=== PATIENT | male | born 1970 | race Caucasian/White ===

== ENCOUNTER → 2017-01-29 | Outpatient (CLI) | payer BC ==
--- NOTE | 2017-01-29 10:33 | XR ---
EXAMINATION TYPE: XR Hip Complete RT DATE OF EXAM: 01/29/2017 10:28 AM COMPARISON: NONE HISTORY: Pain TECHNIQUE: 2 views submitted FINDINGS: There is no evidence of erosive change or acute fracture. Severe narrowing of the superior margin of the joint space with hypertrophic change of the acetabulum . Chronic deformity involving the femoral neck and head with a small spur. IMPRESSION: 1. Severe arthropathy correlate for osteoarthritis.
== END | disposition home or self-care (01) ==
LOC: RADXRMAIN 10:16
PROVIDERS: ATTEND Family Medicine
DX: M12.851 Other specific arthropathies, not elsewhere classified, right hip (principal)
CPT/HCPCS: 73502

== ENCOUNTER 2018-05-25 17:05 | Inpatient (IN) | payer BC ==
[2018-05-22 15:40] VITALS: BMI 35.9
[2018-06-02] MEDS ORDERED: ACETAMINOPHEN TAB 500 MG TAB PO ONE (05:00)
[2018-06-02] MEDS ORDERED: TRANEXAMIC ACID 1,000 MG in SODIUM CHLORIDE 0.9% 50 ML IVPB ONE ×4 (05:00)
[2018-06-02] MEDS ORDERED: ROPIVACAINE 246.25 MG, EPINEPHrine 0.5 MG, KETOROLAC 30 MG, cloNIDine HCL/PF 80 MCG, WA... MISCELLANE ONE ×5 (06:26)
[2018-06-02] MEDS: MELOXICAM 7.5 MG TAB PO ONE ×2 (08:29→16:44)
[2018-06-02] MEDS ORDERED: LACTATED RINGERS 1,000 ML IV ONE ×3 (08:30→10:33)
[2018-06-02] MEDS ORDERED: ONDANSETRON 4 MG/2 ML VIAL IVP ONE (08:42)
[2018-06-02] MEDS ORDERED: DEXAMETHASONE SOD PHOSPHATE 10 MG/ML 1 ML VIAL IV ONE (08:43)
[2018-06-02] MEDS ORDERED: hydrOXYzine PAMOATE 25 MG CAP PO PRN (08:50)
[2018-06-02] MEDS ORDERED: ONDANSETRON 4 MG/2 ML VIAL IVP PRN (08:50)
[2018-06-02] MEDS ORDERED: HYDROmorphone 1 MG/ML 1 ML SYRINGE IVP PRN ×3 (08:50)
[2018-06-02] MEDS ORDERED: DIAZEPAM 5 MG TAB PO PRN ×2 (08:50)
[2018-06-02] MEDS ORDERED: MAGNESIUM HYDROXIDE 2,400 MG/10 ML CUP PO PRN (08:50)
[2018-06-02] MEDS ORDERED: HYDROcodone/APAP 5-325MG 1 EACH TAB PO PRN (08:50)
[2018-06-02] MEDS ORDERED: NALOXONE 0.4 MG/ML 1 ML VIAL IV PRN (08:50)
[2018-06-02] MEDS ORDERED: SODIUM CHLORIDE 0.9% 100 ML BAG ONE (09:20)
[2018-06-02] MEDS ORDERED: HEPARIN SODIUM,PORCINE 10,000 UNIT/ML 1 ML VIAL ONE (09:20)
[2018-06-02] MEDS ORDERED: diphenhydrAMINE 50 MG/ML 1 ML VIAL ONE (09:20)
[2018-06-02] MEDS ORDERED: fentaNYL (PF) 50 MCG/ML 2 ML AMP ONE (09:20)
[2018-06-02] MEDS ORDERED: TRANEXAMIC ACID 1,000 MG/10 ML VIAL ONE (09:20)
[2018-06-02] MEDS ORDERED: DEXTROSE 50%-WATER 50 ML VIAL IV ONE (09:20)
[2018-06-02] MEDS ORDERED: PROPOFOL 10 MG/ML 20 ML VIAL IV ONE (09:20)
[2018-06-02] MEDS ORDERED: MIDAZOLAM 2 MG/2 ML VIAL ONE (09:20)
[2018-06-02] MEDS ORDERED: SODIUM CHLORIDE 0.9% IRRIG 1,000 ML BTL IRRIGATION ONE (09:20)
[2018-06-02] MEDS ORDERED: BUPIVACAINE (PF) 0.75% 10 ML VIAL ONE (09:20)
[2018-06-02] MEDS ORDERED: ceFAZolin 3,000 MG in SODIUM CHLORIDE 0.9% IRRIGATIO 3,000 ML IRRIGATION ONE (09:49)
--- NOTE | 2018-06-02 10:53 | P.OP ---
Date of Procedure: 06/02/18 Preoperative Diagnosis: Severe osteoarthritis right hip Postoperative Diagnosis: Severe osteoarthritis right hip Procedure(s) Performed: Right total hip arthroplasty with a direct anterior approach Implants: Rivera and nephew Polarstem size 5 standard Rivera & Nephew R3, 3 hole acetabular shell, 56 mm Rivera [employer] Nephew reflection 6.5 mm cancellus screw, 20 mm 2 Rivera [employer] Nephew R3, XLPE 20 acetabular liner Rivera & Nephew Oxinium femoral head 36 m, +0 All components were press-fit. The articulation is Oxinium on polyethylene. Anesthesia: spinal Surgeon: Curtis Johnson Cartographic Aide #1: Teresa Mcfarland Estimated Blood Loss (ml): 250 (120 mL returned with Cell Saver) Pathology: other (Femoral head) Condition: stable Disposition: PACU Indications for Procedure: After failure of conservative treatment we discussed the surgical and nonsurgical treatment options at length. Patient wishes to proceed with a total hip arthroplasty with a direct anterior approach. Complications specific to this procedure were discussed at length, including but not limited to infection, leg length discrepancy, dislocation, and nerve injury. Patient is aware of all these complications and informed consent was obtained Operative Findings: The operative findings are consistent with severe osteoarthritis of the right hip Description of Procedure: Patient was seen and evaluated in the preoperative area, consent was reviewed, and the surgical site was marked with a skin marker. Patient was then brought to the operating room and given prophylactic antibiotics intravenously. 1 g of Tranexamic acid was also given. A spinal anesthetic was administered by the anesthesia department. The patient was then placed on the [place] table with the bony prominences well-padded. The hip area was then prepped and draped in usual sterile fashion. A universal timeout was then performed, which confirmed the patient's name, surgical site, ALLERGIES, and procedure being performed. Next the incision site was located at 1 cm distal and 1 cm lateral to the anterior superior iliac spine. The skin and subcutaneous tissues were sharply incised. Incision was carefully dissected down to the fascia overlying the tensor fascia mainor muscle. This fascia was then incised in line with the incision. Next, using blunt finger dissection, the tensor fascia mainor muscle was dissected off its investing fascia. The muscle was then carefully retracted laterally with a cobra retractor over the lateral neck of the femur. Next, the circumflex vessels were identified and cauterized using the AquaMantis device. The anterior hip capsule was then exposed. The capsule was then opened and an inverted T fashion. Cobra retractors were then placed intracapsularly. The proximal femur was then visualized. The femoral neck was then osteotomized appropriate level above the lesser trochanter. Small amount of traction was placed with the [place] table. A small wedge of bone was then removed from the remaining femoral head. Next, using a corkscrew femoral head was easily removed from the acetabulum. On gross visual inspection, the femoral head had complete loss of articular cartilage in multiple periarticular osteophytes. Attention was then turned to the acetabulum. the acetabulum was exposed and any remaining labrum was excised. Sequential reaming of the acetabulum was performed using fluoroscopic guidance. When the appropriate size was reached, a trial was then placed. The position and fit of the trial was checked with fluoroscopy. The trial was then removed. Then, using fluoroscopic guidance, the final implant was impacted at 20 of anteversion and 40 of abduction, and fully seated in the acetabulum. 2 screws were then placed in the acetabulum. Again fluoroscopy was used to check position of the screws. Next, the liner was then impacted, with a 20 elevated liner located in the anterior superior quadrant. Component locking was confirmed. Attention was then directed to the femur. With the aid of the [place] table, the femur was externally rotated to approximately 130, extended, and abducted under the opposite leg. A side hook was then placed under the proximal femur, and the side hook elevator was used to elevate the proximal femur. Retractors were then placed. A capsular release was performed, as well as a release of the conjoined tendon, which afforded excellent visualization of the proximal femur. Next, a box osteotome was used to lateralize the proximal femur. A handle bender was then used to locate the femoral canal. Sequential broaching was then performed with appropriate size which afforded excellent fixation in the proximal femur. A trial was then placed with appropriate head and neck, and the hip was gently reduced with the aid of the [place] table. Fluoroscopy was then used to check position of the components, as well as to ensure equal leg lengths. The hip was then gently dislocated and the trials were then removed. Final implants were then impacted and the hip was again reduced. Final fluoroscopic x-rays confirmed that the components were in anatomic position, as well as equal leg lengths. The hip was also taken through range of motion, and found to be stable. The hip was then copiously irrigated with antibiotic solution with pulsatile lavage. The hip was then irrigated with Irrisept solution. The soft tissues were then injected with a ropivacaine solution, which consisted of 246.25 mg of ropivacaine, 0.5 mg of epinephrine, 30 mg of Toradol, 80 g of clonidine, and 48.45 mL of sterile water, for a total of 100 mL of fluid injected. A second dose of 1 g of Tranexamic acid was also given. the fascia was then closed with 2-0 strata fix suture. The subcutaneous tissue was closed with 3-0 Vicryl. The subcuticular tissue was closed with 3-0 strata fix suture. The skin was then closed with Dermabond glue and a sterile silver dressing. The patient was then transferred to the recovery room in stable condition. The public health assistant SONG Salgado was required due to the complexity of surgery, and the need for skilled certified surgical technician for positioning, draping, exposure, retraction, and closure of the wound.
[2018-06-02] MEDS ORDERED: MEPERIDINE 50 MG/ML SYRINGE IVP ONE ×2 (11:10→11:20)
[2018-06-02] MEDS ORDERED: HYDROmorphone 1 MG/ML 1 ML SYRINGE IVP ONE ×4 (11:38→12:32)
--- NOTE | 2018-06-02 11:49 | XR ---
Right hip HISTORY: Status post right hip arthroplasty Single frontal view of the right hip Patient is status post right hip arthroplasty. There is anatomic alignment. Lucency in the soft tissu es compatible with postop state. IMPRESSION: Orthopedic follow-up
--- NOTE | 2018-06-02 12:52 | FL ---
Fluoroscopy HISTORY: Anterior hip replacement 1 minute 2 seconds fluoroscopy time supplied to the referring clinician. 2 intraoperative C-arm imag es document the procedure. See dictated report from orthopedic surgery.
--- NOTE | 2018-06-02 12:53 | XR ---
Limited right hip HISTORY: Anterior hip replacement 2 intraoperative C-arm images document the procedure.
[2018-06-02] MEDS: HYDROcodone/APAP 5-325MG 1 EACH TAB PO PRN ×2 (14:46→21:28)
[2018-06-02] MEDS ORDERED: ceFAZolin 3 GM in SODIUM CHLORIDE 0.9% 100 ML IVPB SCH (16:00)
[2018-06-02] MEDS: MELOXICAM 7.5 MG TAB PO SCH (16:38)
[2018-06-02] MEDS: ASPIRIN 325 MG TAB PO SCH ×2 (16:38→21:27)
[2018-06-02] MEDS: SODIUM CHLORIDE 0.9% 1,000 ML IV SCH (16:39)
[2018-06-02] MEDS ORDERED: SENNOSIDES-DOCUSATE SODIUM 1 EACH TAB PO SCH (21:00)
[2018-06-03] MEDS: HYDROcodone/APAP 5-325MG 1 EACH TAB PO PRN (07:08)
[2018-06-03 07:11] VITALS: BP 144/85; PULSE 75; RESP 12; TEMP 97.9
[2018-06-03 07:36] LABS: Basophils % (A) 0 %; Eosinophils % (A) 0 %; HCT 33.4 % (39.0-53.0); Lymphocytes # (A) 1.8 k/uL (1.0-4.8); Lymphocytes % (A) 17 %; MCH 30.6 pg (25.0-35.0); MCHC 34.2 g/dL (31.0-37.0); MCV 89.4 fL (80.0-100.0); Mean Platelet Volume 6.5; Monocytes # (A) 0.7 k/uL (0-1.0); Monocytes % (A) 7 %; Neutrophils # (A) 8.1 k/uL (1.3-7.7); Neutrophils % (A) 75 %; Platelet Count 245 k/uL (150-450); RBC 3.73 m/uL (4.30-5.90); RDW 12.2 % (11.5-15.5); WBC 10.8 k/uL (3.8-10.6)
--- NOTE | 2018-06-03 07:37 | CONS ---
CONSULTATION SUBJECTIVE: 47-year-old white male status post right hip replacement. The patient has minimal pain at this time, having no chest pain, shortness of breath has a history hypertension. HOME MEDICATIONS: Please see list. REVIEW OF SYSTEMS: Fourteen point review of systems negative except for mentioned in HPI. PHYSICAL EXAM: VITAL SIGNS: Stable, afebrile. CARDIOVASCULAR: S1, S2. LUNGS: Clear. GI soft. HEMATOLOGY: Negative Homans. PSYCH: Fair mood and affect. ASSESSMENT: 1. Osteoarthritis right hip. 2. Hypertension. Continue on current home medications. Follow up PT, OT at home, probably discharge home soon. MMODL / IJN: [id number] /
[2018-06-03] MEDS: SODIUM CHLORIDE 0.9% 1,000 ML IV SCH ×2 (07:40→08:23)
[2018-06-03 07:47] LABS: HGB 11.4 gm/dL (13.0-17.5)
[2018-06-03] MEDS: ASPIRIN 325 MG TAB PO SCH (09:44)
[2018-06-03] MEDS: MELOXICAM 7.5 MG TAB PO SCH (09:44)
[2018-06-03] MEDS ORDERED: HYDROcodone/APAP 7.5-325MG 1 EACH TAB PO PRN ×2 (10:09)
--- NOTE | 2018-06-03 10:16 | P.DS ---
Providers Date of admission: 06/02/18 07:47 Expected date of discharge: 06/03/18 Attending physician: Curtis Johnson Consults: 06/02/18 08:50 Consult Physician Routine Consulting Provider: Graham Jacobsen Reason/Comments: medical management Do you want consulting provider notified?: Yes Primary care physician: Graham Jacobsen - Discharge Diagnosis(es) (1) Primary osteoarthritis of right hip Current Visit: Yes Status: Acute (2) S/P total hip arthroplasty Current Visit: Yes Status: Acute Hospital Course: This is a 47-year-old male with known history of degenerative arthritis of the right hip. The patient presents for evaluation. After discussion and consideration patient elects to proceed with total hip arthroplasty. The patient is seen preoperatively by Dr. Johnson and medically cleared for surgery by their primary care physician. Patient is admitted to [facility] on 06/02/2018 for total hip arthroplasty. The procedures performed without complication or sequelae. The patient is doing well postoperatively. Labs and vital signs are stable on day of discharge. On day of discharge patient's hip incision is healing well. There is minimal erythema. There is no drainage noted at this time. There is minimal soft tissue swelling to the hip and thigh. Patient has full foot and ankle motion without difficulty or pain. Neurovascular status to the right lower extremity is intact. Patient is discharged home in good condition. Please see med rec for accurate list of home medications. Plan - Discharge Summary Discharge Rx Participant: Yes New Discharge Prescriptions: New Aspirin 325 mg PO BID #60 tab HYDROcodone/APAP 7.5-325MG [[place] 7.5-325] 1 - 2 tab PO Q4-6H PRN #84 tab PRN Reason: Pain Sennosides [Senokot] 1 tab PO BID #60 tablet No Action Multivitamins, Thera [Multivitamin (formulary)] 1 tab PO DAILY amLODIPine [Norvasc] 5 mg PO DAILY Hydrocodone/Acetaminophen [Hydrocodon-Acetaminoph 7.5-325] 1 tab PO TID PRN PRN Reason: Pain Ibuprofen 800 mg PO Q8H PRN PRN Reason: Pain Discharge Medication List Hydrocodone/Acetaminophen [Hydrocodon-Acetaminoph 7.5-325] 1 tab PO TID PRN [History] Ibuprofen 800 mg PO Q8H PRN 05/22/18 [History] Multivitamins, Thera [Multivitamin (formulary)] 1 tab PO DAILY 05/22/18 [History ] amLODIPine [Norvasc] 5 mg PO DAILY 05/22/18 [History] Aspirin 325 mg PO BID #60 tab 06/03/18 [Rx] HYDROcodone/APAP 7.5-325MG [[place] 7.5-325] 1 - 2 tab PO Q4-6H PRN #84 tab [Rx] Sennosides [Senokot] 1 tab PO BID #60 tablet 06/03/18 [Rx] Follow up Appointment(s)/Referral(s): Curtis Johnson DO [Doctor of Osteopathic Medicine] - 06/18/18 1:30 pm Activity/Diet/Wound Care/Special Instructions: Weightbearing as tolerated with walker Leave dressing intact. Dressing may be removed by home care nurse in 10 days. May shower with dressing on. Follow-up with [facility] in 2 weeks, please call with any questions or concerns [phone] Discharge Disposition: HOME WITH HOME HEALTH SERVICES
== END 2018-06-03 16:03 | disposition home health service (06) | DRG 470 ==
LOC: 2ORMAIN 06-02 07:47 → 3SUR 06-02 14:05
PROVIDERS: ADMIT Orthopaedic Surgery; ATTEND Orthopaedic Surgery
PROC: 30233N0 Transfusion of Autologous Red Blood Cells into Peripheral Vein, Percutaneous Approach (ICD-10-PCS; 2018-06-02)
PROC: 0SR906A Replacement of Right Hip Joint with Oxidized Zirconium on Polyethylene Synthetic Substitute, Uncemented, Open Approach (ICD-10-PCS; principal; 2018-06-02 09:20)
DX: M16.11 Unilateral primary osteoarthritis, right hip (principal); I10 Essential (primary) hypertension; K42.9 Umbilical hernia without obstruction or gangrene; E03.9 Hypothyroidism, unspecified; Z79.899 Other long term (current) drug therapy
CPT/HCPCS: 73501; 85025; 86850; 86891; 86900; 86901; 88300

== ENCOUNTER → 2018-05-26 | Outpatient (CLI) | payer BC ==
[2018-05-26 15:01] LABS: HCT 44.5 % (39.0-53.0); HGB 14.9 gm/dL (13.0-17.5); MCH 30.2 pg (25.0-35.0); MCHC 33.5 g/dL (31.0-37.0); Mean Platelet Volume 6.2; Platelet Count 351 k/uL (150-450); RBC 4.94 m/uL (4.30-5.90); RDW 12.4 % (11.5-15.5); WBC 7.2 k/uL (3.8-10.6)
[2018-05-26 15:05] LABS: Appearance,Urine Clear (Clear); Bilirubin,Urine Negative (Negative); Blood,Urine Negative (Negative); Color,Urine Yellow; Glucose,Urine (UA) Negative (Negative); Ketones,Urine Negative (Negative); Leukocyte Esterase,Urine Negative (Negative); Nitrite,Urine Negative (Negative); PH, Urine 5.5 (5.0-8.0); Protein,Urine Negative (Negative); Specific Gravity,Urine 1.014 (1.001-1.035); Urobilinogen,Urine <2.0 mg/dL (<2.0)
[2018-05-26 15:11] LABS: ALT 40 U/L (21-72); AST 22 U/L (17-59); Albumin 4.8 g/dL (3.5-5.0); Alkaline Phosphatase 67 U/L (38-126); Anion Gap 11 mmol/L; Blood Urea Nitrogen 15 mg/dL (9-20); Calcium 9.9 mg/dL (8.4-10.2); Carbon Dioxide 26 mmol/L (22-30); Chloride 102 mmol/L (98-107); Glucose 95 mg/dL (74-99); Potassium 5.1 mmol/L (3.5-5.1); Sodium 139 mmol/L (137-145); Total Bilirubin 0.3 mg/dL (0.2-1.3); Total Protein 7.7 g/dL (6.3-8.2)
[2018-05-26 15:21] LABS: INR 0.9 (<1.2); Prothrombin Time 9.4 sec (9.0-12.0)
== END | disposition home or self-care (01) ==
LOC: LABPAT 13:54
PROVIDERS: ATTEND Orthopaedic Surgery
DX: Z01.812 Encounter for preprocedural laboratory examination (principal)
CPT/HCPCS: 80053; 81003; 85027; 85610; 85730; 87070

== ENCOUNTER → 2019-07-20 | Outpatient (CLI) | payer BC ==
--- NOTE | 2019-07-20 08:53 | XR ---
EXAMINATION TYPE: XR shoulder complete RT DATE OF EXAM: 07/20/2019 COMPARISON: NONE HISTORY: Pain TECHNIQUE: Three views are submitted. FINDINGS: The osseous structures are intact. There is no acute fracture or dislocation. There is arthropathy o f the AC joint hypertrophic spurring. Apical pleural thickening. IMPRESSION: 1. AC joint arthropathy correlate for rotator cuff disease.
== END | disposition home or self-care (01) ==
LOC: RADXRMAIN 08:34
PROVIDERS: ATTEND Family Medicine
DX: M25.511 Pain in right shoulder (principal)

== ENCOUNTER → 2021-06-22 | Outpatient (CLI) | payer BC ==
--- NOTE | 2021-06-22 13:17 | US ---
EXAMINATION TYPE: US kidneys/renal and bladder DATE OF EXAM: 06/22/2021 COMPARISON: NONE CLINICAL HISTORY: N20.2 Renal Stones. UTI, history of kidney stones EXAM MEASUREMENTS: Right Kidney: 11.4 x 5.9 x 6.2 cm Left Kidney: 11.7 x 5.7 x 5.5 cm Right Kidney: No hydronephrosis or masses seen Left Kidney: No hydronephrosis or masses seen Bladder: wnl Bilateral Jets seen: yes There is no evidence for hydronephrosis at this point in time. No nephrolithiasis is seen. No jose s are identified. The urinary bladder is anechoic. Bilateral ureteral jets are seen. IMPRESSION: Normal renal ultrasound
== END | disposition home or self-care (01) ==
LOC: RADUSWWP 12:20
PROVIDERS: ATTEND Family Medicine
DX: N39.0 Urinary tract infection, site not specified (principal); Z87.442 Personal history of urinary calculi
CPT/HCPCS: 76770

== ENCOUNTER → 2021-08-31 | Outpatient (CLI) | payer BC ==
--- NOTE | 2021-08-31 15:35 | XR ---
Lumbar spine HISTORY: Back pain 3 views the lumbar spine, no comparisons Lumbar vertebral bodies show preserved height, alignment, and bone mineralization. There is multileve l spondylosis. Some loss of disc height is present L1-2. Some sclerosis present in the posterior la posta ents of the lower lumbar spine. Postop change noted to the right hip. IMPRESSION: Degenerative disc disease and facet arthropathy.
== END | disposition home or self-care (01) ==
LOC: RADXRMAIN 11:33
PROVIDERS: ATTEND Family Medicine
DX: M51.36 Other intervertebral disc degeneration, lumbar region (principal); M47.816 Spondylosis without myelopathy or radiculopathy, lumbar region
CPT/HCPCS: 72100

== ENCOUNTER → 2021-09-04 | Outpatient (CLI) | payer BC ==
--- NOTE | 2021-09-05 11:46 | CT ---
EXAMINATION TYPE: CT lumbar spine wo con DATE OF EXAM: 09/04/2021 COMPARISON: Plain film 08/31/2021 HISTORY: BACK PAIN X10 YEARS CT DLP: 2189 mGycm Automated exposure control for dose reduction was used. An unenhanced CT of the lumbar spine was performed. Bone and soft tissue window settings are submitt ed as well as coronal and sagittal reconstructions. FINDINGS: There is multilevel spondylosis. Lumbar vertebral bodies show preserved height, alignment, bone hydraulic miner blasting alization. Minimal retrolisthesis grade 1 L5-S1. Disc heights are relatively maintained, some mild lo ss of disc at L1-2. Low-attenuation within the liver likely due to hepatic steatosis, there may be hepatic megaly. Some d iverticular change noted associated with the colon. Hypertrophic change present at the sacroiliac mary nt on the left, suspect there is ankylosis present. Spina bifida occulta present at S1. L1-L2: Central posterior disc herniation is present causing mass effect on the thecal sac. There is s ome facet arthropathy. No evident foraminal encroachment. L2-L3: Eccentric disc bulge towards the left causes anterolateral mass effect on the thecal sac. No s ignificant foraminal encroachment or spinal stenosis. L3-L4: Normal disc space height. No disc herniation protrusion or central stenosis. No facet joint arthropathy. No evidence for foraminal encroachment. L4-L5: Posterior extension of heart disc present in the left posterior paracentral location causing s ome anterolateral mass effect on the thecal sac. Circumferential extension endplate cause some forami nal encroachment on the left greater than right. No significant spinal stenosis. L5-S1: Posterior extension endplate disc complex may contact the anterior thecal sac, proximal S1 ner ve roots, no significant spinal stenosis or foraminal encroachment. IMPRESSION: Degenerative disc disease as described.
== END | disposition home or self-care (01) ==
LOC: RADCTMAIN 18:20
PROVIDERS: ATTEND Family Medicine
DX: M51.36 Other intervertebral disc degeneration, lumbar region (principal); M43.17 Spondylolisthesis, lumbosacral region; M47.816 Spondylosis without myelopathy or radiculopathy, lumbar region; M51.26 Other intervertebral disc displacement, lumbar region
CPT/HCPCS: 72131

== ENCOUNTER → 2022-08-19 | Outpatient (CLI) | payer BC ==
[2022-08-19 10:01] VITALS: BP 154/100; PULSE 73; RESP 18; TEMP 98.1
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
== END ==
LOC: PNWHC3 08:46
PROVIDERS: ATTEND Specialist
DX: M47.816 Spondylosis without myelopathy or radiculopathy, lumbar region (principal); M51.36 Other intervertebral disc degeneration, lumbar region
CPT/HCPCS: 99211

== ENCOUNTER → 2024-05-10 | Outpatient (CLI) | payer BC ==
[2024-05-10 10:36] VITALS: BP 146/94; PULSE 70; RESP 16; TEMP 97.7
--- NOTE | 2024-05-10 15:10 | P.PAINPG ---
Objective - Vital Signs Vital signs: Intake & Output 05/09/24 05/10/24 05/10/24 18:59 06:59 18:59 Weight 114.759 kg PQRS Measure Charge Sheet Comment: HISTORY OF PRESENT ILLNESS: A 53 yr old male presents today w severe and chronic LBP secondary to DDD, spondylosis and facet arthropathy without myelopathy for evaluation. Pt states his pain level is currently at 10 /10 in intensity, intermittent, predominantly axial, localized in the lower lumbar spine L>R, sore in character w occasional radiation of pain towards the L buttock. Pain is provoked by being sedentary for periods > 2 hrs. Pain is alleviated w PT integrated w massage x 8 wks which ended in Summer 2022, physician guided stretches daily since Summer 2022, heat, medications (Columbus, Ibuprofen), topicals, home stretching regimen, TENS unit use, repositioning and rest. Oswestry axial pain score of 26. Interventional procedures include Medications include Columbus, Ibu REVIEW OF ORGAN SYSTEMS: CONSTITUTIONAL: No fevers or chills. No recent weight loss. NEUROLOGICAL: + numbness and tingling along the distal extremities. No seizure disorders or headaches. MUSCULOSKELETAL: + pain PSYCHIATRIC: Denies current depression or suicidal thoughts. Physical Examinations : Constitutional : Cooperative , not in acute distress . Neurologic : Cranial nerve II to XII intact. No focal neurological deficits. Psychiatric : alert & oriented x 3. Matching mood & appropriate affect. Judgment & insight intact. Musculoskeletal : Cervical Spine Motor strength in the deltoid and biceps: Normal right side. Normal Left side Motor strength biceps and the wrist extensors: Normal right side . Normal left side Motor strength in the triceps muscle: Normal right side. Normal left side Deep tendon reflexes: Normal at the biceps. Normal at Brachioradialis. Normal at triceps Vertebral body tenderness to deep palpation over Cervical facet loading test: positive bilaterally Spurling test: positive bilaterally Neck distraction test: positive bilaterally Mabel sign: positive bilaterally Lumbar spine Motor strength lower extremities ,thigh and legs 5/5 Right side , 5/5 Left side Deep tendon reflexes : Normal Knee Jerk. Normal Ankle Jerk Vertebral body tenderness over L5 Lumbar facet Loading Test: positive Right / positive Left Range of motion of the lumbar spine Flexion 30 degrees, extension 10 degrees Straight Leg Raise test: Left/ Right positive at 45 degree Kishor test: positive right / positive left. Severe tenderness over the Sacroiliac joint on the Right / Left sides Gaenslen test: positive bilaterally Seated flexion test: positive bilaterally. Sacral spine : Severe tenderness over the Sacroiliac joint: right side / left side Range of motion: Flexion of the lumbar spine <60 degrees Range of motion: Extension of the lumbar spine <20 degrees Gaenslen's Test positive Sukhwinder's Test positive Kishor test: positive right side / left side Thigh Thrust Test Sacral Thrust Test Imaging: Computed tomography scan without contrast of the lumbar spine from 09/04/21 reviewed Assessment/ Plan : Lumbar spondylosis, Lumbar DDD Recommendation of KANU L5-S1. May need a series of injections, up to 3 within a 6 mo period, for optimal pain relief. Risks, benefits of procedure discussed and patient verbalized understanding. Protocol for discontinuation/ continuation of medications lady procedure discussed. All questions answered. I have spent greater than 30 minutes on patient care today. Dr Garcia was available by phone for the evaluation of this patient. The time was used to review the medical records including relevant urine studies and Prescription history (MAPs), review of the available imaging, evaluation and examination of the patient, coordination of care with the medical staff and if applicable referring physicians, as well as creation of the medical record - Pain Location Bilateral Lower Back Non-Pharmacological Interventions: Heat, Inactivity, Physical Therapy, Position/Reposition, Stretching Pharmacological Interventions: PRN Medication, Scheduled Medication PQRS Narrative: Smoking Status Never smoker Hx Alcohol Use (MH) No Home Medications: Ambulatory Orders Hydrocodone/Acetaminophen [Hydrocodon-Acetaminoph 7.5-325] 1 tab PO TID PRN 05/22/18 Ibuprofen 800 mg PO Q8H PRN 05/22/18 Multivitamins, Thera [Multivitamin (formulary)] 1 tab PO DAILY 05/22/18 amLODIPine [Norvasc] 5 mg PO DAILY 05/22/18 Aspirin 325 mg PO BID #60 tab 06/03/18 HYDROcodone/APAP 7.5-325MG [Columbus 7.5-325] 1 - 2 tab PO Q4-6H PRN #84 tab 06/03/18 Sennosides [Senokot] 1 tab PO BID #60 tablet 06/03/18 diazePAM [Valium] 5 mg PO DAILY PRN 1 Days #2 tab 05/10/24 Controlled Substance Measures - Controlled Substance Measures Is patient prescribed a controlled substance at discharge?: Yes When asked, does pt state using other controlled substances?: Yes If prescribed controlled substance>3 days was MAPS reviewed?: Prescribed <3 Days
== END ==
LOC: PNWHC3 10:15
PROVIDERS: ATTEND Specialist
DX: M51.16 Intervertebral disc disorders with radiculopathy, lumbar region (principal); M47.26 Other spondylosis with radiculopathy, lumbar region
CPT/HCPCS: 99211

== ENCOUNTER 2024-05-20 09:40 | Day surgery (SDC) | payer BC ==
[~2024-05-20 09:40] MED LIST: LACTATED RINGERS 1,000 ML IV SCH
[2024-05-20 09:52] VITALS: TEMP 97.7
[2024-05-20] MEDS ORDERED: IOPAMIDOL M200 10 ML VIAL ONE (10:30)
[2024-05-20] MEDS ORDERED: methylPREDNISolone ACETATE 80 MG/ML 1 ML VIAL ONE (10:30)
--- NOTE | 2024-05-20 10:41 | P.PCN ---
Date of Procedure: 05/20/24 Procedure(s) Performed: PREOPERATIVE DIAGNOSIS: 1- Lumbar Degenerative Disc Diseases 2-Lumbar spondylosis with Facet arthropathy without myelopathy. POSTOPERATIVE DIAGNOSIS: 1-lumbar degenerative disc disease. 2-lumbar spondylosis with facet arthropathy without myelopathy. PROCEDURE 1. Lumbar epidural steroid injection under fluoroscopic guidance at the L5-S1 level. (Fluoroscopy imaging was available in radiology department) 2. Lumbar epidurogram. ANESTHESIA: Lidocaine 1% 3 and then only. EBL: Minimal PROCEDURE INDICATION: The patient with low back pain and radiculitis symptoms unresponsive to conservative treatment. Fluoroscopy was used to optimize visualization of the needle placement and to maximize safety. PROCEDURE DESCRIPTION / TECHNIQUE: The patient was seen and identified in the preoperative area. Risks, benefits, complications including but not limited to infections ,bleeding ,allergic reaction to the medications ,nerve damage and not complete pain releife , and alternatives were discussed with the patient. The patient agreed to proceed with the procedure and signed the consent, and vital signs were stable. Patient was taken to the OR and time out was completed. The patient was placed in the prone position on procedure table and a pillow was placed under the abd omen to reduce lumbar lordosis. The lumbosacral area was prepped and draped in the usual sterile fashion.ere closely monitored during the procedure. Vital signs was monitered during the entire procedure. Using anterior-posterior fluoroscopy, the L5-S1 interlaminar space was identified and the skin over this site was marked and then infiltrated with 1% lidocaine subcutaneously. Subsequently, a 20-gauge Tuohy epidural needle was inserted and advanced toward the epidural space using the ``Loss of resistance technique and guided by AP and lateral fluoroscopy. The correct needle position in the epidural space was verified with the injection of 2 mL of the water soluble contrast dye Isovue 200 contrast and observing an excellent epidurogram with the epidural spread of the dye, after negative aspiration for blood and CSF and in the absence of paresthesias. Again after negative aspiration, a 6 ml mixture containing 80 mg of Depo-medrol ( Preservetive Free ), and 2 ml of preservative free Normal Saline, and 2 ml of preservative free lidocaine 1% solution was injected and a washout of epidurogram was seen. Needle was withdrawn intact, skin was cleansed, and bandages were applied. COMPLICATIONS: None DISPOSITION / PLANS: The patient was placed in a supine position and transferred to the recovery area in a stable condition for observation. There was no evidence of lower extremity motor or sensory deficit after the procedure. Patient was discharged from the recovery room after meeting discharge criteria. Home discharge instructions were given to the patient by the staff. The patient was reexamined prior to discharge. The patient will schedule a follow up in the clinic in 2-4 weeks.
[2024-05-20 11:13] VITALS: BP 124/82; PULSE 88; RESP 18
--- NOTE | 2024-05-20 11:13 | FL ---
EXAMINATION TYPE: FL guided pain mgmt statistic DATE OF EXAM: 05/20/2024 HISTORY: Fluoroscopy time Total dose area product (DAP) in uGy*m?, mGy*cm? (or similar): 0.42277 IMPRESSION: 1. Fluoroscopy time.
== END 2024-05-20 11:17 | disposition home or self-care (01) ==
LOC: ORPAIN 09:40
PROVIDERS: ATTEND Specialist
DX: M47.26 Other spondylosis with radiculopathy, lumbar region (principal); M51.16 Intervertebral disc disorders with radiculopathy, lumbar region
CPT/HCPCS: 62323; Q9966; J1010

== ENCOUNTER → 2024-06-07 | Outpatient (CLI) | payer BC | LOC: PNWHC3 09:00 | PROVIDERS: ATTEND Specialist | DX: M47.26 Other spondylosis with radiculopathy, lumbar region (principal) | CPT/HCPCS: 99211 ==

== ENCOUNTER 2024-07-26 11:48 | Emergency (ER) | payer BC ==
--- NOTE | 2024-07-26 12:55 | ED ---
Back Pain HPI - General Source: patient, RN notes reviewed Limitations: no limitations <Curtis Goss - Last Filed: 07/26/24 14:58> - General Source: patient, RN notes reviewed <Charlene Heath - Last Filed: 07/26/24 21:22> - General Chief Complaint: Back Pain/Injury Stated Complaint: Back pain Time Seen by Provider: 07/26/24 12:01 - History of Present Illness Initial Comments: 53 year old male presents to the emergency department with chief complaint of right shoulder pain x 2 weeks. He reports and extensive history of lower back pain which he receives epidural injections. Today, he reports that he has limited ROM of right shoulder with significant pain with abduction. He states that he has been taking his home medications for pain in addition to ibuprofen, which has not attenuated his symptoms. He states that the pain radiates across either chest, back, or side depending on what movement he does. He reports feeling hotter than usual, sweating, and right flank pain with movement. (Curtis Goss) - Related Data Home Medications Medication Instructions Recorded Confirmed Ibuprofen 800 mg PO Q8H PRN 05/22/18 05/20/24 Multivitamins, Thera [Multivitamin 1 tab PO DAILY 05/22/18 05/20/24 (formulary)] HYDROcodone/APAP 10-325MG [Cameron 1 tab PO TID 05/19/24 05/20/24 10-325] Previous Rx's Medication Instructions Recorded diazePAM [Valium] 5 mg PO DAILY PRN 1 Days #2 tab 05/10/24 Cyclobenzaprine [Flexeril] 10 mg PO TID PRN #15 tab 07/26/24 Allergies Allergy/AdvReac Type Severity Reaction Status Date / Time No Known Allergies Allergy Verified 07/26/24 12:27 Review of Systems ROS Other: All systems not noted in ROS Statement are negative. <Curtis Goss - Last Filed: 07/26/24 14:58> ROS Other: All systems not noted in ROS Statement are negative. <Charlene Heath - Last Filed: 07/26/24 21:22> ROS Statement: Those systems with pertinent positive or pertinent negative responses have been documented in the HPI. Past Medical History Past Medical History: Osteoarthritis (OA) Additional Past Medical History / Comment(s): back pain History of Any Multi-Drug Resistant Organisms: None Reported Past Surgical History: Hernia Repair, Joint Replacement Additional Past Surgical History / Comment(s): WISDOM TEETH. rt hip replace Past Anesthesia/Blood Transfusion Reactions: No Reported Reaction Past Psychological History: No Psychological Hx Reported Smoking Status: Never smoker Past Alcohol Use History: None Reported Past Drug Use History: None Reported - Past Family History Father Family Medical History: Cancer Mother Family Medical History: Cancer <Curtis Goss M - Last Filed: 07/26/24 14:58> General Exam Limitations: no limitations General appearance: alert, in no apparent distress Head exam: Present: atraumatic, normocephalic, normal inspection Eye exam: Present: normal appearance, PERRL, EOMI. Absent: scleral icterus, conjunctival injection, periorbital swelling ENT exam: Present: normal exam, mucous membranes moist Neck exam: Present: normal inspection. Absent: tenderness, meningismus, lymphadenopathy Respiratory exam: Present: normal lung sounds bilaterally. Absent: respiratory distress, wheezes, rales, rhonchi, stridor Cardiovascular Exam: Present: regular rate, normal rhythm, normal heart sounds. Absent: systolic murmur, diastolic murmur, rubs, gallop, clicks GI/Abdominal exam: Present: soft, normal bowel sounds. Absent: distended, tenderness, guarding, rebound, rigid Extremities exam: Present: normal inspection, full ROM, normal capillary refill. Absent: tenderness, pedal edema, joint swelling, calf tenderness Right Shoulder Exam: Present: tenderness (Decreased abduction and internal rotation.), swelling, other (Decreased ROM) Upper Arm exam: Present: normal inspection Elbow exam: Present: normal inspection Forearm Wrist exam: Present: normal inspection Hand Wrist exam: Present: normal inspection Back exam: Present: normal inspection Neurological exam: Present: alert, oriented X3, CN II-XII intact Psychiatric exam: Present: normal affect, normal mood Skin exam: Present: warm, dry, intact, normal color. Absent: rash <Curtis Goss Jose - Last Filed: 07/26/24 14:58> Course Vital Signs 07/26/24 07/26/24 12:24 18:00 Temperature 98.4 F 98.0 F Pulse Rate 75 82 Respiratory 20 18 Rate Blood Pressure 143/77 144/86 O2 Sat by Pulse 99 100 Oximetry Medical Decision Making - EKG Data -: EKG Interpreted by Me <Ana PaulaCurtis Jose - Last Filed: 07/26/24 14:58> <Charlene Heath - Last Filed: 07/26/24 21:22> - Medical Decision Making Was pt. sent in by a medical professional or institution (, PA, [employer], urgent care, hospital, or halfway...) When possible be specific @ -No Did you speak to anyone other than the patient for history (EMS, parent, family, police, friend...)? What history was obtained from this source @ -No Did you review nursing and triage notes (agree or disagree)? Why? @ -I reviewed and agree with nursing and triage notes Were old charts reviewed (outside hosp., previous admission, EMS record, old EKG, old radiological studies, urgent care reports/EKG's, halfway records)? Report findings @ -No old charts were reviewed Differential Diagnosis (chest pain, altered mental status, abdominal pain women, abdominal pain men, vaginal bleeding, weakness, fever, dyspnea, syncope, headache, dizziness, GI bleed, back pain, seizure, CVA, palpatations, mental health, musculoskeletal)? @ -Differential Back Pain: Strain, zoster, cauda equina syndrome, epidural abscess, vertebral osteomyelitis, discitis, fracture, subluxation, disc herniation, DJD, spinal stenosis, dissection, AAA, pancreatitis, peptic ulcer disease, pyelonephritis, kidney stone, this is not meant to be an all-inclusive list. EKG interpreted by me (3pts min.). @ -none X-rays interpreted by me (1pt min.). @ -X-ray right shoulder no acute osseous abnormality X-ray thoracic spine no acute process CT interpreted by me (1pt min.). @ -None done U/S interpreted by me (1pt. min.). @ -None done What testing was considered but not performed or refused? (CT, X-rays, U/S, labs)? Why? @ -None What meds were considered but not given or refused? Why? @ -None Did you discuss the management of the patient with other professionals (professionals i.e. , SONG, [employer], lab, RT, psych nurse, director social welfare, clipper machine operator, teacher, information technology officer, insurance case manager)? Give summary @ -No Was smoking cessation discussed for >3mins.? @ -No Was critical care preformed (if so, how long)? @ -No Were there social determinants of health that impacted care today? How? (Homelessness, low income, unemployed, alcoholism, drug addiction, transportation, low edu. Level, literacy, decrease access to med. care, assisted, rehab)? @ -No Was there de-escalation of care discussed even if they declined (Discuss DNR or withdrawal of care, Hospice)? DNR status @ -No What co-morbidities impacted this encounter? (DM, HTN, Smoking, COPD, CAD, Cancer, CVA, ARF, Chemo, Hep., AIDS, mental health diagnosis, sleep apnea, morbid obesity)? @ -None Was patient admitted / discharged? Hospital course, mention meds given and route, prescriptions, significant lab abnormalities, going to OR and other pertinent info. @ -signed to case to Charlene ZULETA (Curtis Goss) Was pt. sent in by a medical professional or institution (, SONG, [employer], urgent care, hospital, or halfway...) When possible be specific @ -No Did you speak to anyone other than the patient for history (EMS, parent, family, police, friend...)? What history was obtained from this source @ -No Did you review nursing and triage notes (agree or disagree)? Why? @ -I reviewed and agree with nursing and triage notes Were old charts reviewed (outside hosp., previous admission, EMS record, old EKG, old radiological studies, urgent care reports/EKG's, halfway records)? Report findings @ -No old charts were reviewed Differential Diagnosis (chest pain, altered mental status, abdominal pain women, abdominal pain men, vaginal bleeding, weakness, fever, dyspnea, syncope, headache, dizziness, GI bleed, back pain, seizure, CVA, palpatations, mental health, musculoskeletal)? @ -Differential Musculoskeletal Muscular strain, contusion, ligament sprain, fracture, arthritis, septic arthritis, bursitis, cellulitis, muscle spasm, nerve compression, DVT, arterial occlusion, herpes zoster, electrolyte abnormality, tumor.... This is not meant to be in all inclusive list EKG interpreted by me (3pts min.). @ -None X-rays interpreted by me (1pt min.). @ -X-ray thoracic spine and right shoulder reveals no acute process. CT interpreted by me (1pt min.). @ -CT cervical and thoracic spine reveals no acute process U/S interpreted by me (1pt. min.). @ -None done What testing was considered but not performed or refused? (CT, X-rays, U/S, labs )? Why? @ -None What meds were considered but not given or refused? Why? @ -None Did you discuss the management of the patient with other professionals (professionals i.e. , PA, [employer], lab, RT, psych nurse, director social welfare, clipper machine operator, teacher, information technology officer, insurance case manager)? Give summary @ -No Was smoking cessation discussed for >3mins.? @ -No Was critical care preformed (if so, how long)? @ -No Were there social determinants of health that impacted care today? How? (Homelessness, low income, unemployed, alcoholism, drug addiction, transportation, low edu. Level, literacy, decrease access to med. care, assisted, rehab)? @ -No Was there de-escalation of care discussed even if they declined (Discuss DNR or withdrawal of care, Hospice)? DNR status @ -No What co-morbidities impacted this encounter? (DM, HTN, Smoking, COPD, CAD, Cancer, CVA, ARF, Chemo, Hep., AIDS, mental health diagnosis, sleep apnea, morbid obesity)? @ -None Was patient admitted / discharged? Hospital course, mention meds given and route, prescriptions, significant lab abnormalities, going to OR and other pertinent info. @ -Discharged. This is a 53-year-old male presenting with right shoulder pain x 1.5 weeks. Denies trauma or injury. Denies chest pain, shortness of breath, abdominal pain. Neurovascularly intact. Patient was given analgesics during ER workup. X-rays of thoracic spine and right shoulder reveals no acute process. CT of cervical and thoracic spine was then performed which reveals no acute process. Negative findings were discussed with patient. Advised to follow-up closely with PCP and orthopedics. Return precautions discussed, patient is agreeable to plan. Case was discussed with my ED attending Dr. Miranda. Patient stable at time of discharge. Undiagnosed new problem with uncertain prognosis? @ -No Drug Therapy requiring intensive monitoring for toxicity (Heparin, Nitro, Insulin, Cardizem)? @ -No Were any procedures done? @ -No Diagnosis/symptom? @ -Cervical muscle strain Acute, or Chronic, or Acute on Chronic? @ -Acute Uncomplicated (without systemic symptoms) or Complicated (systemic symptoms)? @ -Uncomplicated Side effects of treatment? @ -No Exacerbation, Progression, or Severe Exacerbation? @ -No Poses a threat to life or bodily function? How? (Chest pain, [place], [place], pneumonia, PE, COPD, DKA, ARF, appy, cholecystitis, CVA, Diverticulitis, Homicidal, Suicidal, threat to staff... and all critical care pts) @ -No (Charlene Heath) - EKG Data EKG Comments: EKG performed at 12.31 4 sinus rhythm rate of 83 RI 120 QRS 99 QT/QTc 347/387 (Curtis Goss) Disposition <Curtis Goss - Last Filed: 07/26/24 14:58> Is patient prescribed a controlled substance at d/c from ED?: No Time of Disposition: 17:41 <Charlene Heath - Last Filed: 07/26/24 21:22> Clinical Impression: Cervical muscle strain Disposition: HOME SELF-CARE Condition: Stable Instructions (If sedation given, give patient instructions): Cervical Strain (ED) Additional Instructions: Follow-up with Dr. Jacobsen and [facility] as discussed. Take muscle relaxers as needed for pain. Please return to the Emergency Department if symptoms worsen or any other concerns. Prescriptions: Cyclobenzaprine [Flexeril] 10 mg PO TID PRN #15 tab PRN Reason: Muscle Spasm Referrals: Graham Jacobsen MD [Primary Care Provider] - 1-2 days
--- NOTE | 2024-07-26 14:20 | XR ---
EXAMINATION TYPE: XR shoulder complete RT DATE OF EXAM: 07/26/2024 2:07 PM CLINICAL INDICATION: Male, 53 years old with history of Pain; COMPARISON: 06/19/2019 TECHNIQUE: XR shoulder complete RT; examined in AP, internally rotated and scapular Y projections. FINDINGS: No evidence of acute osseous pathology, joint dislocation, or soft tissue swelling. The remaining po rtions of the visualized chest are unremarkable. Degeneration changes of the acromion, distal clavic le with osteophyte formation. There is osteophyte formation of the glenoid and humeral head. There is joint space narrowing of glenohumeral joint. IMPRESSION: 1. No acute osseous pathology. 2. Mild shoulder osteoarthrosis. [facility], , 07/26/2024 2:18 PM
--- NOTE | 2024-07-26 14:21 | XR ---
EXAMINATION TYPE: XR thoracic spine complete DATE OF EXAM: 07/26/2024 2:08 PM CLINICAL INDICATION: Male, 53 years old with history of pain; COMPARISON: TECHNIQUE: XR thoracic spine complete views of the spine in Frontal and lateral projections. FINDINGS: No evidence of acute fracture. There is scattered multilevel disk space narrowing without loss of ve rtebral body height. There is normal alignment of the thoracic vertebral bodies. Scattered osteophyte formation along the anterior and lateral aspects of the vertebral bodies. Neural foramen are patent given limitations of this exam. Spinal canal appears patent. IMPRESSION: 1. No acute osseous pathology. 2. [id number] multilevel degeneration changes of the spine. [facility], , 07/26/2024 2:19 PM
[2024-07-26] MEDS: HYDROmorphone 1 MG/ML 1 ML SYRINGE IM STA (14:33)
[2024-07-26] MEDS: KETOROLAC 15 MG/ML 1 ML VIAL IVP STA (15:17)
[2024-07-26] MEDS: DEXAMETHASONE SOD PHOSPHATE 10 MG/ML 1 ML VIAL IVP STA (15:23)
--- NOTE | 2024-07-26 16:23 | CT ---
EXAMINATION TYPE: CT CervThoracic spine wo con DATE OF EXAM: 07/26/2024 COMPARISON: None HISTORY: neck pain CT DLP: 1765.7 mGycm Automated exposure control for dose reduction was used. Multiple axial images are obtained through th e cervical and thoracic spine without contrast. FINDINGS: The thoracic and cervical vertebral segments are normal in height and alignment and there is no fract ure or subluxation. Vertebral soft tissues in the cervical region are normal. Disc spaces well-preser bharat. There is moderate anterior spondylosis lower thoracic spine. There is no thoracic or cervical di sc herniation There is no thoracic or cervical spinal stenosis. The paraspinal soft tissues are unremarkable IMPRESSION: NO SIGNIFICANT ABNORMALITY SEEN. [facility], , 07/26/2024 4:21 PM
[2024-07-26 18:02] VITALS: BP 144/86; PULSE 82; RESP 18; TEMP 98
== END 2024-07-26 18:33 | disposition home or self-care (01) ==
LOC: EC 11:48
DX: M54.50 Low back pain, unspecified
CPT/HCPCS: 72072; 72125; 72128; 93005; 96372; 96374; 96375; 99284

== ENCOUNTER 2024-08-03 11:19 | Observation (INO) | payer BC ==
--- NOTE | 2024-08-03 11:51 | ED ---
Back Pain HPI - General Chief Complaint: Back Pain/Injury Stated Complaint: Back pain-sent by PCP Time Seen by Provider: 08/03/24 11:38 Source: patient, RN notes reviewed Mode of arrival: ambulatory Limitations: no limitations - History of Present Illness Initial Comments: This is a 53-year-old male who presents to the emergency department for back pain. States that in the middle of June he went to bend over and did something to his back. States that since then he has had pain in the mid to upper back. He was evaluated here on 07/[address] scans that were negative. States that since then he continues to have severe pain and he has not slept in several days. He followed-up with his PCP who advised he come to the emergency department for admission. Reports some numbness and paresthesias in the right upper extremity. He does have chronic problems with his lower back, but states that that is not worse than usual, it is all in the mid to upper back that is giving him problems. MD Complaint: back pain - Related Data Home Medications Medication Instructions Recorded Confirmed Ibuprofen 800 mg PO TID PRN 05/22/18 08/03/24 HYDROcodone/APAP 10-325MG [[place] 1 tab PO QID 05/19/24 08/03/24 10-325] Budesonide/Glycopyr/Formoterol 2 puff INHALATION RT-BID 08/03/24 08/03/24 [Breztri Aerosphere Inhaler] Zolpidem [Ambien] 10 mg PO HS PRN 08/03/24 08/03/24 predniSONE See Taper PO DIRECTED 08/03/24 08/03/24 tadalafiL 20 mg PO Q72H PRN 08/03/24 08/03/24 Allergies Allergy/AdvReac Type Severity Reaction Status Date / Time No Known Allergies Allergy Verified 08/03/24 12:47 Review of Systems ROS Statement: Those systems with pertinent positive or pertinent negative responses have been documented in the HPI. ROS Other: All systems not noted in ROS Statement are negative. Past Medical History Past Medical History: Osteoarthritis (OA) Additional Past Medical History / Comment(s): back pain History of Any Multi-Drug Resistant Organisms: None Reported Past Surgical History: Hernia Repair, Joint Replacement Additional Past Surgical History / Comment(s): WISDOM TEETH. rt hip replace Past Anesthesia/Blood Transfusion Reactions: No Reported Reaction Past Psychological History: No Psychological Hx Reported Smoking Status: Never smoker Past Alcohol Use History: None Reported Past Drug Use History: None Reported - Past Family History Father Family Medical History: Cancer Mother Family Medical History: Cancer General Exam Limitations: no limitations General appearance: alert, in no apparent distress Head exam: Present: atraumatic, normocephalic, normal inspection Respiratory exam: Present: normal lung sounds bilaterally. Absent: respiratory distress, wheezes, rales, rhonchi, stridor Cardiovascular Exam: Present: regular rate, normal rhythm, normal heart sounds. Absent: systolic murmur, diastolic murmur, rubs, gallop, clicks Back exam: Present: other (Tenderness to palpation over the mid to upper back) Neurological exam: Present: alert, oriented X3, CN II-XII intact Psychiatric exam: Present: normal affect, normal mood Skin exam: Present: warm, dry, intact, normal color. Absent: rash Course Vital Signs 08/03/24 08/03/24 11:32 14:02 Temperature 98.2 F 98.1 F Pulse Rate 88 86 Respiratory 18 20 Rate Blood Pressure 170/104 132/88 O2 Sat by Pulse 98 98 Oximetry Medical Decision Making - Medical Decision Making This is a 53 year old male who presents to the emergency department for back pain. Was pt. sent in by a medical professional or institution? @ -His PCP Did you speak to anyone other than the patient for history? @ -No Did you review nursing and triage notes? @ -Yes, and I agree, it is accurate with regards to the patient's symptoms. Were old charts reviewed? @ -CT scan of the cervical and thoracic spine from 07/26/2024 demonstrating no acute process. Differential Diagnosis? @ -Differential Back Pain: Strain, zoster, cauda equina syndrome, epidural abscess, vertebral osteomyelitis, discitis, fracture, subluxation, disc herniation, DJD, spinal stenosis, dissection, AAA, pancreatitis, peptic ulcer disease, pyelonephritis, kidney stone, this is not meant to be an all-inclusive list. EKG interpreted by me (3pts min.)? @ -Not obtained X-rays interpreted by me (1pt min.)? @ -Not obtained CT interpreted by me (1pt min.)? @ -Not obtained U/S interpreted by me (1pt. min.)? @ -Not obtained What testing was considered but not performed? (CT, X-rays, U/S, labs)? Why? @ -None What meds were considered but not given? Why? @ -None Did you discuss the management of the patient with other professionals? @ -Yes, Dr. Jacobsen, who accepts the patient for admission. Did you reconcile home meds? @ -Yes Was smoking cessation discussed for >3mins.? @ -No Was critical care preformed (if so, how long)? @ -No Were there social determinants of health that impacted care today? How? (Homelessness, low income, unemployed, alcoholism, drug addiction, transportation, low edu. Level, literacy, decrease access to med. care, fdc, rehab)? @ -No Was there de-escalation of care discussed even if they declined? (Discuss DNR or withdrawal of care, Hospice)? @ -No What co-morbidities impacted this encounter? (DM, HTN, Smoking, COPD, CAD, Cancer, CVA, Hep., AIDS, mental health diagnosis, sleep apnea, morbid obesity)? @ -DDD, osteoarthritis Was patient admitted / discharged? @ -Admitted. Patient sent to the emergency department for admission by his PCP. Case discussed with his PCP who requested an MRI and consult with Dr. Tse. CT scan of the cervical and thoracic spine from 07/26/2024 was reviewed revealing no acute process. Because there have been no new injuries and there is plan to proceed with an MRI, no additional x-rays or CTs were ordered. Stat order for MRI of the cervical and thoracic spine was ordered and consult was placed for Dr. Tse, orthopedics. Baseline lab work was ordered at the point of admission as well. Case discussed with ED attending Dr. Modi. Undiagnosed new problem with uncertain prognosis? @ -None Drug Therapy requiring intensive monitoring for toxicity (Heparin, Nitro, Insulin, Cardizem)? @ -None Were any procedures done? @ -None Diagnosis/symptom? @ -Intractable thoracic and cervical spine pain Acute, or Chronic, or Acute on Chronic? @ -Acute Uncomplicated (without systemic symptoms) or Complicated (systemic symptoms)? @ -Uncomplicated Side effects of treatment? @ -None Exacerbation, Progression, or Severe Exacerbation] @ -Not applicable Poses a threat to life or bodily function? @ -Yes, the pain is limiting his ability to function - Lab Data Result diagrams: 08/03/24 12:36 08/03/24 12:36 Lab Results 08/03/24 08/03/24 08/03/24 Range/Units 12:36 12:36 14:15 WBC 14.1 H (3.8-10.6) k/uL RBC 5.01 (4.30-5.90) m/uL Hgb 15.8 (13.0-17.5) gm/dL Hct 46.0 (39.0-53.0) % MCV 91.8 (80.0-100.0) fL MCH 31.6 (25.0-35.0) pg MCHC 34.4 (31.0-37.0) g/dL RDW 12.2 (11.5-15.5) % Plt Count 324 (150-450) k/uL MPV 6.8 Neutrophils % 75 % Lymphocytes % 18 % Monocytes % 5 % Eosinophils % 1 % Basophils % 0 % Neutrophils # 10.5 H (1.3-7.7) k/uL Lymphocytes # 2.6 (1.0-4.8) k/uL Monocytes # 0.7 (0-1.0) k/uL Eosinophils # 0.2 (0-0.7) k/uL Basophils # 0.0 (0-0.2) k/uL Sodium 136 L (137-145) mmol/L Potassium 4.8 (3.5-5.1) mmol/L Chloride 108 H (98-107) mmol/L Carbon Dioxide 21 L (22-30) mmol/L Anion Gap 7 mmol/L BUN 16 (9-20) mg/dL Creatinine 0.78 (0.66-1.25) mg/dL Est GFR (CKD-EPI)AfAm >90 (>60 ml/min/1.73 sqM) Est GFR (CKD-EPI)NonAf >90 (>60 ml/min/1.73 sqM) Glucose 97 (74-99) mg/dL Calcium 9.8 (8.4-10.2) mg/dL Total Bilirubin 0.9 (0.2-1.3) mg/dL AST 29 (17-59) U/L ALT 23 (4-49) U/L Alkaline Phosphatase 39 (38-126) U/L Total Protein 7.9 (6.3-8.2) g/dL Albumin 4.9 (3.5-5.0) g/dL Urine Color Yellow Urine Appearance Clear (Clear) Urine pH 5.5 (5.0-8.0) Ur Specific [place] 1.027 (1.001-1.035) Urine Protein Trace H (Negative) Urine Glucose (UA) Negative (Negative) Urine Ketones Negative (Negative) Urine Blood Negative (Negative) Urine Nitrite Negative (Negative) Urine Bilirubin Negative (Negative) Urine Urobilinogen <2.0 (<2.0) mg/dL Ur Leukocyte Esterase Negative (Negative) Disposition Clinical Impression: Intractable back pain, Thoracic back pain, Cervical pain (neck) Disposition: ADMITTED IP TO THIS HOSP
[2024-08-03] MEDS ORDERED: NALOXONE 0.4 MG/ML 1 ML VIAL IV PRN (12:06)
[2024-08-03] MEDS ORDERED: HYDROmorphone 0.5 MG/0.5 ML SYRINGE IVP PRN (12:11)
[2024-08-03] MEDS ORDERED: IBUPROFEN 400 MG TAB PO PRN (12:11)
[2024-08-03] MEDS ORDERED: ACETAMINOPHEN TAB 325 MG TAB PO PRN (12:11)
[2024-08-03] MEDS ORDERED: ONDANSETRON 4 MG/2 ML VIAL IVP PRN (12:11)
[2024-08-03] MEDS: HYDROmorphone 1 MG/ML 1 ML SYRINGE IVP STA (12:40)
[2024-08-03] MEDS: DEXAMETHASONE SOD PHOSPHATE 10 MG/ML 1 ML VIAL IVP STA (12:42)
[2024-08-03] MEDS: KETOROLAC 15 MG/ML 1 ML VIAL IVP STA (12:44)
[2024-08-03 12:47] LABS: Basophils % (A) 0 %; Eosinophils # (A) 0.2 k/uL (0-0.7); Eosinophils % (A) 1 %; HGB 15.8 gm/dL (13.0-17.5); Lymphocytes # (A) 2.6 k/uL (1.0-4.8); Lymphocytes % (A) 18 %; MCH 31.6 pg (25.0-35.0); MCHC 34.4 g/dL (31.0-37.0); MCV 91.8 fL (80.0-100.0); Mean Platelet Volume 6.8; Monocytes # (A) 0.7 k/uL (0-1.0); Monocytes % (A) 5 %; Neutrophils # (A) 10.5 k/uL (1.3-7.7); Neutrophils % (A) 75 %; Platelet Count 324 k/uL (150-450); RBC 5.01 m/uL (4.30-5.90); RDW 12.2 % (11.5-15.5); WBC 14.1 k/uL (3.8-10.6)
[2024-08-03] MEDS: ORPHENADRINE 30 MG/ML 2 ML VIAL IVP STA (12:48)
[2024-08-03 12:57] LABS: ALT 23 U/L (4-49); AST 29 U/L (17-59); African American GFR (CKD) >90 (>60 ml/min/1.73 sqM); Albumin 4.9 g/dL (3.5-5.0); Alkaline Phosphatase 39 U/L (38-126); Anion Gap 7 mmol/L; Blood Urea Nitrogen 16 mg/dL (9-20); Calcium 9.8 mg/dL (8.4-10.2); Carbon Dioxide 21 mmol/L (22-30); Chloride 108 mmol/L (98-107); Glucose 97 mg/dL (74-99); Non-African American GFR(CKD) >90 (>60 ml/min/1.73 sqM); Potassium 4.8 mmol/L (3.5-5.1); Sodium 136 mmol/L (137-145); Total Bilirubin 0.9 mg/dL (0.2-1.3); Total Protein 7.9 g/dL (6.3-8.2)
[2024-08-03] MEDS: HYDROmorphone 1 MG/ML 1 ML SYRINGE IVP PRN (14:06)
[2024-08-03 14:32] LABS: Appearance,Urine Clear (Clear); Bilirubin,Urine Negative (Negative); Blood,Urine Negative (Negative); Color,Urine Yellow; Glucose,Urine (UA) Negative (Negative); Ketones,Urine Negative (Negative); Leukocyte Esterase,Urine Negative (Negative); Nitrite,Urine Negative (Negative); PH, Urine 5.5 (5.0-8.0); Protein,Urine Trace (Negative); Specific Gravity,Urine 1.027 (1.001-1.035); Urobilinogen,Urine <2.0 mg/dL (<2.0)
[2024-08-03] MEDS: HYDROcodone/APAP 10-325MG 1 EACH TAB PO SCH (17:07)
[2024-08-03] MEDS: IPRATROPIUM 0.5 MG/2.5 ML NEBU INHALATION SCH (18:41)
[2024-08-03] MEDS: SYMBICORT 160-4.5 MCG INHALER INHALATION SCH (20:07)
[2024-08-03] MEDS: methylPREDNISolone SOD SUCCI 40 MG/ML 1 ML VIAL IV SCH (22:58)
[2024-08-04] MEDS: PANTOPRAZOLE 40 MG/10 ML VIAL IV SCH (09:16)
--- NOTE | 2024-08-04 15:17 | MR ---
EXAMINATION TYPE: MR cspine/tspine wo/w con DATE OF EXAM: 08/04/2024 COMPARISON: CT cervical thoracic spine 07/26/2024, thoracic spine radiograph 07/26/2024 HISTORY: Intractable neck and back pain with neurological symptoms. TECHNIQUE: Multiplanar, multisequence images of the cervicothoracic spine is performed without and with IV contr ast, utilizing 10 mL intravenous Gadavist FINDINGS: Alignment: The cervical and thoracic vertebral bodies have preserved heights. Alignment is within nor mal limits given patient positioning. Bones: Bone signal is otherwise within normal limits. Cord: The spinal cord is unremarkable with regards to their signal intensity and morphology. Regions of CSF flow artifact. No abnormal contrast enhancement. Discs: Minimal multilevel disc desiccation. C2-C3: No significant disc pathology. The spinal canal is patent. No neural foraminal stenosis. C3-C4: No significant disc pathology. The spinal canal is patent. Uncovertebral joint hypertrophy wi th mild left neural foraminal narrowing. Right neuroforamen is patent. C4-C5: No significant disc pathology. The spinal canal is patent. Uncovertebral joint hypertrophy wi th mild left neural foraminal narrowing. Right neuroforamen is patent. C5-C6: Eccentric right posterior distal aspect complex with mild effacement of the anterior right the azra sac. No neural foraminal stenosis. C6-C7: Broad-based disc bulge without significant effacement of the anterior thecal sac. No neural f oraminal stenosis. C7-T1: Right small subarticular zone disc protrusion without significant central canal stenosis. Ther e is moderate right neural foraminal stenosis. The left neural foramen is patent. Small left T2-T3 paracentral disc protrusion without significant effacement of the anterior thecal sa c. Small right T3-T4 paracentral disc protrusion with mild effacement of the anterior thecal sac. No other significant central canal stenosis or disc herniation. No thoracic neural foraminal stenosis identified. IMPRESSION: Small disc protrusions at C7-T1, T2-T3, T3-T4 with only mild effacement of the anterior thecal sac at T3-T4. C5-C6 posterior disc osteophyte complex with mild effacement of the anterior right thecal sac . C3-C4 and C4-C5 mild left neural foraminal stenosis secondary to uncovertebral joint hypertrophy. N o other significant central canal or neuroforaminal stenosis. No abnormal contrast enhancement or abn ormal spinal cord signal. [facility], , 08/04/2024 3:14 PM
[2024-08-04] MEDS: ZOLPIDEM 5 MG TAB PO PRN (22:09)
[2024-08-04] MEDS: LACTULOSE 20 GM/30 ML CUP PO SCH (22:10)
--- NOTE | 2024-08-04 22:59 | HP ---
HISTORY AND PHYSICAL SUBJECTIVE: A 53-year-old white male, retractable back pain, severe paresis of the right arm, had multiple outpatient treatments. He is unable to move his arm. He is admitted for acute interventions per Dr. Tse versus epidural shots. Medications at home were reviewed. History of osteoarthritis, degenerative disk disease. OBJECTIVE: VITAL SIGNS: Temperature 98, pulse 86 to 88, respiratory rate 18 to 20, blood pressure 130s to 170s over 88 to 104, O2 saturation 98%. CARDIOVASCULAR: S1, S2. LUNGS: Transmitted upper sounds. GI: Soft. HEMATOLOGY: Negative Homans. PSYCH: Fair mood and affect. NEUROLOGIC: Alert and oriented x3. MUSCULOSKELETAL: Limited motion of his right arm in a sling. Severe tenderness to cervical and lumbar spine on the right side. Labs were reviewed. He has acute cervical lumbar neuritis, unable to move his right arm, severe paresis. Continue current treatment. Started with IV Solu-Medrol. Muscle relaxers, pain control. Prognosis guarded. MMODL / IJN: [id number] /
[2024-08-05] MEDS: KETOROLAC 15 MG/ML 1 ML VIAL IVP PRN (08:20)
--- NOTE | 2024-08-05 12:11 | P.CNOR ---
History of Present Illness - [facility] Consult date: 08/05/24 Requesting physician: Graham Jacobsen Consult reason: other (Intractable thoracic and cervical spine pain) History of present illness: Patient is a 53 y/o male who presents to the emergency department at [facility] due to back/neck pain. Orthopedics was consulted from medicine in regards to intractable cervical and thoracic pain. Patient was seen at bedside this morning sitting up at the edge of the bed. Patient states that on July 12 he was moving a box which he states was not very heavy when he noticed increasing pain along his right shoulder blade and right clavicle. Patient notes he has had many different symptoms since the event occurred. Patient does note feeling a lump in his throat as well as pain referred from his sternum into his right shoulder as well as pain behind the shoulder blade as well as numbness and tingling down the arm into his right ring finger and right pinky finger. Patient states evident bouts of feet and cold down the right arm over the past month. Patient says he did note some weakness however, patient did not note after the initial event any visual disturbances or significant issues with his overall function. Patient denies any previous neck surgery or shoulder surgery. Patient states he has had hip replacement by Dr. Johnson in 2018. Patient says he also had pain injections by Dr. Garcia recently in his lumbar spine. Patient says some of the pain in his arm is relieved when he raises his arm above his head. Patient says he is unable to sleep on the right side and he does get increased pain when lying flat on his back. Patient says there is exacerbation of pain when he uses right arm down at his side. Patient denies any significant chest pain, shortness of breath, nausea, vomiting, change in vision, loss of pulse/bladder control. Denies any history of HI or stroke. Patient denies any significant traumas. Past Medical History Past Medical History: Osteoarthritis (OA) Additional Past Medical History / Comment(s): back pain History of Any Multi-Drug Resistant Organisms: None Reported Past Surgical History: Hernia Repair, Joint Replacement Additional Past Surgical History / Comment(s): WISDOM TEETH. rt hip replace Past Anesthesia/Blood Transfusion Reactions: No Reported Reaction Past Psychological History: No Psychological Hx Reported Smoking Status: Never smoker Past Alcohol Use History: None Reported Additional Past Alcohol Use History / Comment(s): CHEWS TOBACCO, ON/OFF SINCE 2007 quit chewing Past Drug Use History: None Reported - Past Family History Father Family Medical History: Cancer Mother Family Medical History: Cancer Medications and Allergies Home Medications Medication Instructions Recorded Confirmed Type Ibuprofen 800 mg PO TID PRN 05/22/18 08/03/24 History HYDROcodone/APAP 10-325MG [[place] 1 tab PO QID 05/19/24 08/03/24 History 10-325] Budesonide/Glycopyr/Formoterol 2 puff INHALATION RT-BID 08/03/24 08/03/24 History [Breztri Aerosphere Inhaler] Zolpidem [Ambien] 10 mg PO HS PRN 08/03/24 08/03/24 History predniSONE See Taper PO DIRECTED 08/03/24 08/03/24 History tadalafiL 20 mg PO Q72H PRN 08/03/24 08/03/24 History Acetaminophen Tab [Tylenol] 650 mg PO Q6HR PRN tab 08/06/24 Rx Allergies Allergy/AdvReac Type Severity Reaction Status Date / Time No Known Allergies Allergy Verified 08/03/24 12:47 Physical Examination Osteopathic Statement: *. No significant issues noted on an osteopathic structural exam other than those noted in the History and Physical/Consult. Inspection: Negative for any open fractures, scapular erythema/ecchymosis/open wounds. Sensation: Sensation is equal, symmetric, but intact throughout the upper extremity exam. Patient does have some numbness along the ulnar side of the right upper extremity and into his fourth and fifth digits. Palpation: Nontender to palpation throughout cervical spine and midline. There is some paravertebral tenderness to patient near the right shoulder blade at about C4/5. There is some mild tenderness to patient over the lower lumbar spine at midline and in the bilateral SI joints. Range of motion: Patient does have full range of motion of bilateral upper extr emities on exam. Patient does not have any significant issues with range of motion or pain during range of motion of right upper extremity. Motor: 4-/5 in resisted right elbow flexion/extension. 4/5 in all other major motor groups in the right upper extremity. 4+/5 in all major motor groups in the left upper extremity. Neurovascular: Radial pulse intact, 2+ bilateral. Cap refill under 3 seconds in digits upper extremities. Special tests: Negative Mabel bilaterally. Negative clonus bilaterally. Negative Homans bilaterally. Results - Labs Labs: H & H 08/03/24 Range/Units 12:36 Hgb 15.8 (13.0-17.5) gm/dL Hct 46.0 (39.0-53.0) % Result Diagrams: 08/03/24 12:36 08/03/24 12:36 - Diagnostic results Cervical MRI with/without contrast: report reviewed, image reviewed (MRI of the cervical and thoracic spine was performed. There are evident disc protrusions at C7-T1, T2 to T3, T3-4 as well as osteophyte complex at C5-C6. There is mild left-sided neuroforaminal stenosis at C3 through C4 5. No significant central canal stenosis. Negative for any significant fract) Assessment and Plan Assessment: 1. Cervicalgia; right upper extremity radiculopathy; DDD Plan: 1. Cervicalgia; right upper extremity radiculopathy; degenerative disc disease - MRI of the cervical and thoracic spine was performed. There are evident disc protrusions at C7-T1, T2 to T3, T3-4 as well as osteophyte complex at C5-C6. There is mild left-sided neuroforaminal stenosis at C3 through C4-5. No significant central canal stenosis. Negative for any significant fractures/listhesis. I did review the findings of exam and imaging in my attending, Dr. Tse. At this time we are not recommending any emergent/urgent orthopedic surgical intervention. We are recommending cons ervative measures at this time with the use of steroids, pain medication and PT/OT. Medicine has consulted pain management for further treatment options. He may weight-bear as tolerated. Patient is encouraged perform gentle range of motion exercises of the right upper extremity. Apply ice as needed to affected areas. Orthopedics will continue to be available as needed during patient stay in hospital. We do recommend patient to follow-up in the outpatient setting with Dr. Tse for continued evaluation. 2. Appreciate medical and pain management recommendations 3. Pain management - [place]; Motrin; Toradol 4. GI prophylaxis - protonix 5. DVT prophylaxis recs 6. PT/OT - weightbearing as tolerated; okay to perform range of motion exercises 7. Encourage incentive spirometer use 8. Appreciate consult I have seen and examined the patient and I agree with the above assessment. 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 He states this has been going on for the past two to three weeks now and it started with him lifting some things and moving them. he feels that it is in the right upper arm and shoulder region but radiates to the right arm and to the hand. He states a somewhat searing pain in the trapezius region here as well. He denies any other issues. He did get an injection from [facility] and this seems to have helped him somewhat but he is still having the weakness. He states he would like to try conservative treatment as much as possible before any surgery. This is reasonable. We will continue to assess him and see him back in office in 1-2 weeks for reevaluation and discussion. If the shots have not helped him enough we can explore other options. He is comfortable with this. Time with Patient: Greater than 30
--- NOTE | 2024-08-05 12:57 | P.PAINCN ---
History of Present Illness - Reason for Consult Consult date: 08/05/24 - History of Present Illness This is 53 years old male acute onset of severe neck pain with radiation to the right upper extremity with July 12 2024, denies any initiating event he reported that he woke up in the morning with the symptoms of pain with radiation to the right upper extremity and shoulder area, associated with some weakness in the right arm, and severe numbness and tingling sensation, he tried conservative treatment with pain medication, NSAID, trigger point injection, home physical therapy, not any significant improvement, she was admitted to [facility] secondary to severe pain., Denies any fever or night sweats he denies any change in the bowel movement or urination Past Medical History Past Medical History: Osteoarthritis (OA) Additional Past Medical History / Comment(s): back pain History of Any Multi-Drug Resistant Organisms: None Reported Past Surgical History: Hernia Repair, Joint Replacement Additional Past Surgical History / Comment(s): WISDOM TEETH. rt hip replace Past Anesthesia/Blood Transfusion Reactions: No Reported Reaction Past Psychological History: No Psychological Hx Reported Smoking Status: Never smoker Past Alcohol Use History: None Reported Additional Past Alcohol Use History / Comment(s): CHEWS TOBACCO, ON/OFF SINCE 2007 quit chewing Past Drug Use History: None Reported - Past Family History Father Family Medical History: Cancer Mother Family Medical History: Cancer Medications and Allergies Home Medications Medication Instructions Recorded Confirmed Type Ibuprofen 800 mg PO TID PRN 05/22/18 08/03/24 History HYDROcodone/APAP 10-325MG [[place] 1 tab PO QID 05/19/24 08/03/24 History 10-325] Budesonide/Glycopyr/Formoterol 2 puff INHALATION RT-BID 08/03/24 08/03/24 History [Breztri Aerosphere Inhaler] Zolpidem [Ambien] 10 mg PO HS PRN 08/03/24 08/03/24 History predniSONE See Taper PO DIRECTED 08/03/24 08/03/24 History tadalafiL 20 mg PO Q72H PRN 08/03/24 08/03/24 History Allergies Allergy/AdvReac Type Severity Reaction Status Date / Time No Known Allergies Allergy Verified 08/03/24 12:47 Physical Exam Vitals: Vital Signs Temp Pulse Pulse Resp BP Pulse Ox 08/05/24 11:20 78 08/05/24 11:08 76 08/05/24 07:59 78 08/05/24 07:43 78 08/05/24 07:15 98.2 F 94 17 132/83 97 08/05/24 02:00 98.1 F 91 18 121/71 99 08/04/24 21:00 91 08/04/24 20:00 98.4 F 91 18 131/82 99 08/04/24 19:55 80 08/04/24 19:42 84 08/04/24 16:04 82 16 08/04/24 15:56 80 16 08/04/24 14:32 97.8 F 90 17 129/93 93 L Intake and Output 08/04/24 08/05/24 08/05/24 22:59 06:59 14:59 Intake Total 118 Balance 118 Intake: Oral 118 Other: Voiding Method Toilet Toilet # Voids 2 2 Physical Examinations : -Constitutiona : Cooperative , not in acute distress . -HEENT : nech : supple , no Lymphadenopathy , normal thyroid size . : eyes : no ptosis , no icterus, no photophobia . - neurologic : Cranial nerve II to XII intact , no focal neurological deffecit . -psychatric : alert , oriented X 3 , appropriate affect , intact judgment and insight . -Lymphatic : no Lymphadenopathy . - musculoskeltal : Cervical Spine motor stregnth in the deltoid and biceps, 3-4/5 right side , 5/5 Left side motor stregnth biceps and the wrist extensors 3-4/5 right side ,5/5 left side . motor stregnth in the triceps muscle . 3-4/5 Right side , normal Left side cervical facet loading test: Positive Bilaterally Spurling test= positive Right , positive left. Neck distraction test= positive Right , negative left. Mabel sign= positive right, negative left . Decreased sensation in the right upper extremity, C5,C6 ,C7 dermatomal distribution Lumber spine moter stegnth lower extremities ,thigh and legs 5/5 Right side , 5/5 Left side Results CBC & Chem 7: 08/03/24 12:36 08/03/24 12:36 Comments: MRI of the cervical spine= foraminal stenosis and facet hypertrophy multilevels Assessment and Plan Plan: Assessment and plan=1-cervical radiculopathy. 2-cervical degenerative disc disease 3-cervical foraminal stenosis. Patient could benefit from cervical epidural steroid injection at C6-7 level right paramedian approach, seizure risk and benefit discussed with the patient he agreed with the proceeding Time with Patient: Less than 30 PQRS Measure Charge Sheet - Pain Location Right Shoulder Pharmacological Interventions: Discuss Pain Med Options, PRN Medication Right Upper Back Non-Pharmacological Interventions: Position/Reposition, Reduce Environmental Stimuli Pharmacological Interventions: Discuss Pain Med Options, PRN Medication Pain Comment: see MAR PQRS Narrative: Smoking Status Never smoker Blood Pressure [Right Arm] 132/83 Blood Pressure [Left Arm] 141/85 Blood Pressure 137/95 Pain Intensity [Right Upper 8 Back] Pain Intensity [Right Shoulder 8 ] Pain Intensity 8 Pain Scale Used Numeric (1 - 10) Scale Used Numeric (1 - 10) Hx Alcohol Use (MH) No Home Medications: Ambulatory Orders Ibuprofen 800 mg PO TID PRN 05/22/18 HYDROcodone/APAP 10-325MG [[place] 10-325] 1 tab PO QID 05/19/24 Budesonide/Glycopyr/Formoterol [Breztri Aerosphere Inhaler] 2 puff INHALATION RT-BID 08/03/24 Zolpidem [Ambien] 10 mg PO HS PRN 08/03/24 predniSONE See Taper PO DIRECTED 08/03/24 tadalafiL 20 mg PO Q72H PRN 08/03/24
[2024-08-05] MEDS ORDERED: IOPAMIDOL M200 10 ML VIAL ONE (14:07)
[2024-08-05] MEDS ORDERED: DEXAMETHASONE SOD PHOSPHATE 10 MG/ML 1 ML VIAL ONE (14:07)
--- NOTE | 2024-08-05 14:15 | P.PCN ---
Date of Procedure: 08/05/24 Procedure(s) Performed: . PROCEDURE 1. Cervical epidural steroid injection under fluoroscopic guidance, C6-7 (fluoroscopy images available in the radiology department ) 2. Cervical epidurogram. PREOPERATIVE DIAGNOSIS: 1- Cervical Degenerative Disc Diseases 2- Cervical radiculopathy., 3-cervical spinal stenosis POSTOPERATIVE DIAGNOSIS: : 1- Cervical Degenerative Disc Diseases , 2- Cervical radiculopathy. 3-cervical spinal stenosis ANESTHESIA: Local anesthesia with lidocaine 1% 3 ml only EBL 0 PROCEDURE INDICATION: The patient with neck pain and radiculitis unresponsive to conservative treatment consents for procedure. PROCEDURE DESCRIPTION / TECHNIQUE: The patient was seen and identified in the preoperative area. Risks, benefits, complications, including but not limited to infections ,bleeding , allergic reactions to the medications ,and not complete pain releife, and alternatives were discussed with the patient, the patient agreed to proceed with the procedure and signed the consent. Patient was taken to the OR and time out was completed. The patient was placed in the prone position on the procedure table. A pillow was placed under the patients chest to increase the cervical interlaminar space. The cervical area was prepped and draped in the usual sterile fashion. Vital signs were closely monitored during the procedure. Using anterior-posterior fluoroscopy, the C6-7 interlaminar space was identified and the skin over this site was marked and then infiltrated with 1% lidocaine subcutaneously. Subsequently, a 20-gauge 3-1/2-inch Tuohy epidural needle was inserted and advanced toward the epidural space by means of the ``hanging-drop technique and guided by AP and lateral fluoroscopy. The correct needle position in the epidural space was verified with the injection of 2 mL of the water soluble contrast dye Isovue-200 and observing an excellent epidurogram with the epidural spread of the dye, after negative aspiration for blood and CSF and in the absence of paresthesias. then, mixture containing 20 mg Dexamethasone and 2 ml of preservative-free normal saline injected and a washout of epidurogram was seen. Needle was withdrawn intact, skin was cleansed, and bandages were applied. Complications= none. Disposition= patient was placed in supine position and transferred to the recovery room area in stable condition and there was no evidence of upper or lower extremity motor or sensory deficit after the procedure patient was discharged from recovery room after discharge criteria met and home discharge instructions was given by the staff and patient will follow with the pain clinic in 2-4 weeks
--- NOTE | 2024-08-05 14:58 | FL ---
EXAMINATION TYPE: FL guided pain mgmt statistic DATE OF EXAM: 08/05/2024 FLUOROSCOPY 3 sec FL, .11534 DAP dose Cervical epidural steroid injection. One image submitted. [facility], , 08/05/2024 2:56 PM
[2024-08-05] MEDS: LORazepam 0.5 MG TAB PO PRN (16:58)
--- NOTE | 2024-08-05 22:13 | CT ---
EXAMINATION TYPE: CT chest wo con CT DLP: 516.6 mGycm, Automated exposure control for dose reduction was used. DATE OF EXAM: 08/05/2024 9:51 PM COMPARISON: None. . CLINICAL INDICATION:Male, 53 years old with history of dyspnea; PHH, VINICIO TECHNIQUE: Multiple axial images were obtained through the chest. Sagittal and coronal reformats were created for review. Contrast used: mL of (None if empty) Oral contrast used: (None if empty) FINDINGS: Exam is limited by lack of contrast. Mild asymmetric elevation of the left hemidiaphragm. Lungs and pleural spaces are clear. Central tracheobronchial tree appears normally patent. Visualized thyroid is grossly unremarkable. No enlarged mediastinal nodes or hematoma. Heart size is within normal limits. Unremarkable unenhanced appearance of the aorta and pulmonary art eries. Limited cuts through the upper abdomen show no adrenal mass or other adverse finding. Mild degenerative changes of the spine. No acute bony abnormality. IMPRESSION: No acute chest abnormality demonstrated. [facility], , 08/05/2024 10:11 PM
--- NOTE | 2024-08-05 23:47 | CT ---
EXAM: CT Angiography Chest With Intravenous Contrast CLINICAL HISTORY: ITS.REASON CT Reason: elevated d-dimer TECHNIQUE: Axial computed tomographic angiography images of the chest with intravenous contrast. CTDI is 61.8 mGy and DLP is 566.4 mGy-cm. This CT exam was performed using one or more of the following dose reduction techniques: automated exposure control, adjustment of the mA and/or kV according to patient size, and/or use of iterative reconstruction technique. MIP reconstructed images were created and reviewed. COMPARISON: No relevant prior studies available. FINDINGS: LUNGS: No focal consolidation, pleural effusion, or pneumothorax. HEART: Within normal limits. VASCULATURE: No acute pulmonary embolism. THYROID: Within normal limits. MEDIASTINUM + LYMPH NODES: There are no pathologically enlarged mediastinal, hilar, or axillary lymph nodes. SUPERIOR ABDOMEN: The included portions of the superior abdomen are within normal limits. MUSCULOSKELETAL: Within normal limits. IMPRESSION: No acute pulmonary embolism.
--- NOTE | 2024-08-06 02:59 | PN ---
PROGRESS NOTE SUBJECTIVE: A 53-year-old white male who has had epidural shot today, had MRI which was reviewed by Dr. Tse. The patient is somewhat improved. He needs medications for anxiety, which were given. His epidural is kicking in, but he still has severe pain. He is on pain shots as well as outpatient [facility] 10s. He will continue on his current treatment. Follow up with Dr. Tse next week. OBJECTIVE: CARDIOVASCULAR: S1, S2. LUNGS: Transmitted upper sounds. GI: Soft. HEMATOLOGY: Negative Homans. PSYCH: Fair mood and affect. IMPRESSION: Status post epidural shot. Continue for cervical thoracic radiculopathy. Follow up as an outpatient. The patient wants his heart checked. We will order some tests for this. I will order an EKG and an echo prior to him going home. He is on breathing treatments for his breathing, which he takes at home. Prognosis guarded. MMODL / IJN: [id number] /
[2024-08-06] MEDS: amLODIPine 5 MG TAB PO STA (08:06)
[2024-08-06 08:35] VITALS: BP 159/111; RESP 16; TEMP 97.8
[2024-08-06 11:28] VITALS: PULSE 70
--- NOTE | 2024-08-06 17:58 | CA ---
Transthoracic Echo Report Name: Dillon Swann Age: 53 Gender: M : 1970 Exam Date: 08/06/2024 11:41 Exam Location: [facility] Ht (in): 72 Wt (lb): 238 Ordering Physician: Graham Jacobsen MD Attending/Referring Phys: Bed Machine Operator Reema Ortega RDCS Procedure CPT: Indications: dyspnea Cardiac Hx: Technical Quality: Fair Contrast 1: Total Dose (mL): Contrast 2: Total Dose (mL): MEASUREMENTS (Male / Female) Normal Values 2D ECHO LV Diastolic Diameter PLAX 5.2 cm 4.2 - 5.9 / 3.9 - 5.3 cm LV Systolic Diameter PLAX 3.5 cm IVS Diastolic Thickness 1.3 cm 0.6 - 1.0 / 0.6 - 0.9 cm LVPW Diastolic Thickness 1.5 cm 0.6 - 1.0 / 0.6 - 0.9 cm LV Relative Wall Thickness 0.5 RV Internal Dim ED PLAX 2.7 cm LA Systolic Diameter LX 4.3 cm 3.0 - 4.0 / 2.7 - 3.8 cm LV Diastolic Volume MOD BP 84.0 cm??? 67 - 155 / 56 - 104 cm??? LV Systolic Volume MOD BP 38.1 cm??? 22 - 58 / 19 - 49 cm??? LV Ejection Fraction MOD BP 54.6 % >= 55 % LV Cardiac Index MOD BP 1721.6 cm???/min???m??? LV Diastolic Volume MOD 4C 94.9 cm??? LV Systolic Volume MOD 4C 35.2 cm??? LV Ejection Fraction MOD 4C 62.9 % LV Cardiac Index MOD 4C 2239.1 cm???/min???m??? LV Diastolic Length 4C 8.2 cm LV Systolic Length 4C 7.2 cm LV Diastolic Volume MOD 2C 68.7 cm??? LV Systolic Volume MOD 2C 41.3 cm??? LV Ejection Fraction MOD 2C 39.9 % LV Cardiac Index MOD 2C 1029.7 cm???/min???m??? LV Diastolic Length 2C 7.5 cm LV Systolic Length 2C 7.3 cm LA Volume 56.3 cm??? 18 - 58 / 22 - 52 cm??? LA Volume Index 23.7 cm???/m??? 16 - 28 cm???/m??? M-MODE Aortic Root Diameter MM 3.2 cm LA Systolic Diameter MM 3.7 cm LA Ao Ratio MM 1.1 AV Cusp Separation MM 1.8 cm DOPPLER AV Peak Velocity 148.2 cm/s AV Peak Gradient 8.8 mmHg AV Mean Velocity 107.0 cm/s AV Mean Gradient 5.1 mmHg AV Velocity Time Integral 34.5 cm LVOT Peak Velocity 100.9 cm/s LVOT Peak Gradient 4.1 mmHg LVOT Velocity Time Integral 21.6 cm MV Area PHT 4.4 cm??? Mitral E Point Velocity 56.1 cm/s Mitral A Point Velocity 82.0 cm/s Mitral E to A Ratio 0.7 MV Deceleration Time 172.8 ms FINDINGS Left Ventricle Left ventricular ejection fraction is estimated at 55-60%. Normal left ventricular systolic function with no obvious regional wall motion abnormalities. Left ventricular cavity size normal.Moderately increased left ventricular wall thickness. Right Ventricle Normal right ventricular size and function. Right ventricular systolic pressure within normal limits. Right Atrium Normal right atrial size. Left Atrium Mildly increased left atrial diameter. Mitral Valve Structurally normal mitral valve. Trace mitral regurgitation. No mitral stenosis. Aortic Valve Trileaflet aortic valve. No aortic valve stenosis or regurgitation. Tricuspid Valve Structurally normal tricuspid valve. Trace tricuspid regurgitation. No tricuspid stenosis. Pulmonic Valve Structurally normal pulmonic valve. Trace pulmonic regurgitation. No pulmonic regurgitation. Pericardium No pericardial or pleural effusion. Aorta Normal size aortic root and proximal ascending aorta. CONCLUSIONS 1. Normal left ventricular size and systolic function 2. Trace mitral and tricuspid regurgitation Previewed by: Dr. Tanisha Gracia MD (Electronically Signed) Final Date: 06 August 2024 17:57
== END 2024-08-06 13:24 | disposition home or self-care (01) ==
LOC: EC 11:19 → 6NMEDSUR 14:31
PROVIDERS: ADMIT Family Medicine; ATTEND Family Medicine
DX: M48.02 Spinal stenosis, cervical region (principal); M50.123 Cervical disc disorder at C6-C7 level with radiculopathy; G83.21 Monoplegia of upper limb affecting right dominant side; M19.90 Unspecified osteoarthritis, unspecified site; Z79.891 Long term (current) use of opiate analgesic; Z79.51 Long term (current) use of inhaled steroids; Z87.891 Personal history of nicotine dependence
CPT/HCPCS: 96376 ×4; 96375 ×3; 96374; 99284; 36415; 94640 ×8; 93306; 93005; 85379; 80053; 85025; 81003; 71250; 71275; 72156; 72157; 62321; G0378 ×4; J1100 ×2; J2360; J1171 ×3; J1885 ×2; Q9967; Q9966; A9585; J2919 ×3; J2470 ×3

== ENCOUNTER → 2024-08-30 | Outpatient (CLI) | payer BC ==
[2024-08-30 10:45] VITALS: BP 124/86; PULSE 83; RESP 16
--- NOTE | 2024-08-30 14:33 | P.PAINPG ---
PQRS Measure Charge Sheet Comment: A 53 yr old male with a history of severe and chronic neck pain secondary to radiculopathy, spondylosis with facet arthropathy without myelopathy presents today for evaluation s/p KANU C6-C7 #1. Pt states he experienced 75 % pain relief x 2-3 wks s/p procedure. Pain level is provoked at 6 /10 in intensity, constant, predominantly axial, localized in the cervical spine, achy in character w occasional shooting towards the RUE. Pain is provoked by lifting. Pain is alleviated with injections, heat, ice, medications , repositioning and rest. Interventional pain procedures completed include KANU C6-C7 x1 Patient is currently on Percocet 10/325mg #120, Tyl, Ibu, Flexeril Patient denies any side effects of the medication(s), denies excessive drowsiness or sleepiness, denies suicidal ideation and reports that the current pain medication is helping to control the pain and improve activities of daily living. Patient denies any motor or sensory deficits. Patient denies any fever or night sweats, denies any change in the bowel movements or urination. Physical Examination: -Constitutional: Cooperative. Not in acute distress . - Neurologic: Cranial nerve II to XII intact. No focal neurological deficits. - Psychatric: Alert & oriented x 3. Matching mood & appropriate affect. Judgment and insight intact. - Musculoskeletal: Cervical spine: Muscle bulk/ tone/ strength in the bilateral upper extremities normal Vertebral body tenderness to palpation over C7 Spurling test positive C7-T1 Distraction test positive Facet loading test positive TTP Thoracic spine Muscle bulk / tone/ strength in the bilateral paraspinal muscles normal Vertebral body tender to palpation over Facet loading test positive TTP Lumbar spine: Motor bulk/ tone/ strength lower extremities , thigh and legs : 5/5 Deep tendon reflexes : Normal Knee Jerk. Normal Ankle Jerk . Vertebral body tenderness to palpation over Lumbar Facet Loading Test positive Straight Leg Raise: positive at 30 degrees right side/ left side Gaenslen's Test positive Sacral spine : Severe tenderness over the Sacroiliac joint: right side / left side Range of motion: Flexion of the lumbar spine <60 degrees Range of motion: Extension of the lumbar spine <20 degrees Gaenslen's Test positive R / L Kishor test: positive right side / left side Thigh Thrust Test positive R / L Sacral Thrust Test positive R/ L Imaging: MRI non contrast cervicothoracic spine from 08/04/24 reviewed Assessment and plan: Chronic neck pain secondary to cervical radiculopathy, spondylosis with facet arthropathy without myelopathy Recommendation of KANU C7-T1 #2. Risks, benefits of procedure discussed and pt verbalized understanding. Admits to anticoagulant use or medical history of diabetes. Protocol for discontinuation/ continuation of medications lady procedure discussed. All questions answered. I have spent less than 30 minutes on patient care today. Dr Garcia was available by phone for the evaluation of this patient. The time was used to review the medical records including relevant urine studies and Prescription history (MAPs), review of the available imaging, evaluation and examination of the patient, coordination of care with the medical staff and if applicable referring physicians, as well as creation of the medical record - Pain Location Neck Non-Pharmacological Interventions: Heat, Ice Pharmacological Interventions: Medication, Scheduled Medication PQRS Narrative: Smoking Status Never smoker Hx Alcohol Use (MH) No Home Medications: Ambulatory Orders Ibuprofen 800 mg PO TID PRN 05/22/18 HYDROcodone/APAP 10-325MG [[place] 10-325] 1 tab PO QID 05/19/24 Budesonide/Glycopyr/Formoterol [Breztri Aerosphere Inhaler] 2 puff INHALATION RT-BID 08/03/24 Zolpidem [Ambien] 10 mg PO HS PRN 08/03/24 predniSONE See Taper PO DIRECTED 08/03/24 tadalafiL 20 mg PO Q72H PRN 08/03/24 Acetaminophen Tab [Tylenol] 650 mg PO Q6HR PRN tab 08/06/24 Controlled Substance Measures - Controlled Substance Measures Is patient prescribed a controlled substance at discharge?: No
== END ==
LOC: PNWHC3 08:57
PROVIDERS: ATTEND Specialist
DX: M47.22 Other spondylosis with radiculopathy, cervical region (principal)
CPT/HCPCS: 99211

== ENCOUNTER 2024-09-14 12:54 | Day surgery (SDC) | payer BC ==
[2024-09-13 09:41] VITALS: BMI 35.9
[2024-09-14 13:17] VITALS: TEMP 97.1
[2024-09-14] MEDS ORDERED: IOPAMIDOL M200 10 ML VIAL ONE (14:17)
[2024-09-14] MEDS ORDERED: DEXAMETHASONE SOD PHOSPHATE 10 MG/ML 1 ML VIAL ONE (14:17)
--- NOTE | 2024-09-14 14:24 | P.PCN ---
Date of Procedure: 09/14/24 Procedure(s) Performed: . PROCEDURE 1. Cervical epidural steroid injection under fluoroscopic guidance, C7-T1 (fluoroscopy images available in the radiology department ) 2. Cervical epidurogram. PREOPERATIVE DIAGNOSIS: 1- Cervical Degenerative Disc Diseases 2- Cervical radiculopathy., 3-cervical spinal stenosis POSTOPERATIVE DIAGNOSIS: : 1- Cervical Degenerative Disc Diseases , 2- Cervical radiculopathy. 3-cervical spinal stenosis ANESTHESIA: Local anesthesia with lidocaine 1% 3 ml only EBL 0 PROCEDURE INDICATION: The patient with neck pain and radiculitis unresponsive to conservative treatment consents for procedure. PROCEDURE DESCRIPTION / TECHNIQUE: The patient was seen and identified in the preoperative area. Risks, benefits, complications, including but not limited to infections ,bleeding , allergic reactions to the medications ,and not complete pain releife, and alternatives were discussed with the patient, the patient agreed to proceed with the procedure and signed the consent. Patient was taken to the OR and time out was completed. The patient was placed in the prone position on the procedure table. A pillow was placed under the patients chest to increase the cervical interlaminar space. The cervical area was prepped and draped in the usual sterile fashion. Vital signs were closely monitored during the procedure. Using anterior-posterior fluoroscopy, the C7-T1 interlaminar space was identified and the skin over this site was marked and then infiltrated with 1% lidocaine subcutaneously. Subsequently, a 20-gauge 3-1/2-inch Tuohy epidural needle was inserted and advanced toward the epidural space by means of the ``hanging-drop technique and guided by AP and lateral fluoroscopy. The correct needle position in the epidural space was verified with the injection of 2 mL of the water soluble contrast dye Isovue-200 and observing an excellent ep idurogram with the epidural spread of the dye, after negative aspiration for blood and CSF and in the absence of paresthesias. then, mixture containing 20 mg Dexamethasone and 2 ml of preservative-free normal saline injected and a washout of epidurogram was seen. Needle was withdrawn intact, skin was cleansed, and bandages were applied. Complications= none. Disposition= patient was placed in supine position and transferred to the recovery room area in stable condition and there was no evidence of upper or lower extremity motor or sensory deficit after the procedure patient was discharged from recovery room after discharge criteria met and home discharge instructions was given by the staff and patient will follow with the pain clinic in 2-4 weeks
[2024-09-14 14:46] VITALS: BP 133/78; PULSE 77; RESP 17
--- NOTE | 2024-09-14 15:33 | FL ---
EXAMINATION TYPE: FL guided pain mgmt statistic DATE OF EXAM: 09/14/2024 2:30 PM COMPARISON: Pre Operative Images if available both CT/MRI or plain film CLINICAL INDICATION: Male, 53 years old with history of PAIN; TECHNIQUE: FL guided pain mgmt statistic, multiple fluoroscopic images provided for procedure. Total fluoroscopy time: 2.5 seconds Total submitted images to PACS: 1 DAP: 0.74049 mGym2 Gycm2 uGym2 cGycm2 or equivalent. FINDINGS: Fluoroscopic images during injection for pain management demonstrate multilevel degeneration changes throughout the spine. No evidence for fracture. No acute process identified. IMPRESSION: 1. No evidence for intraoperative complication. 2. Please see the operative/procedural note for further details. [facility], , 09/14/2024 3:31 PM
== END 2024-09-14 14:47 | disposition home or self-care (01) ==
LOC: ORPAIN 12:54
PROVIDERS: ATTEND Specialist
DX: M48.02 Spinal stenosis, cervical region (principal); M50.13 Cervical disc disorder with radiculopathy, cervicothoracic region; I10 Essential (primary) hypertension; Z79.1 Long term (current) use of non-steroidal anti-inflammatories (NSAID)
CPT/HCPCS: 62321; J1100; Q9966

== ENCOUNTER → 2024-10-06 | Outpatient (CLI) | payer BC ==
[2024-10-06 10:40] VITALS: BP 176/90; PULSE 84; RESP 16
--- NOTE | 2024-10-06 14:43 | P.PAINPG ---
Objective - Vital Signs Vital signs: Intake & Output 10/05/24 10/06/24 10/06/24 18:59 06:59 18:59 Weight 117.934 kg PQRS Measure Charge Sheet Comment: A 53 yr old male with a history of severe and chronic neck pain secondary to radiculopathy, spondylosis with facet arthropathy without myelopathy presents today for evaluation s/p KANU C7-T1 #2. Pt states he experienced 55 % pain relief x 2-3 wks s/p procedure. Pain level is provoked at 7 /10 in intensity, constant, predominantly axial, localized in the cervical spine, achy in character w occasional shooting towards the RUE. Pain is provoked by lifting. Pain is alleviated with injections, heat, ice, medications , repositioning and rest. He has a cervical spine surgery scheduled in October 2024. Interventional pain procedures completed include KANU C6-C7 x1 Patient is currently on Percocet 10/325mg #120, Tyl, Ibu, Flexeril Patient denies any side effects of the medication(s), denies excessive drowsiness or sleepiness, denies suicidal ideation and reports that the current pain medication is helping to control the pain and improve activities of daily living. Patient denies any motor or sensory deficits. Patient denies any fever or night sweats, denies any change in the bowel movements or urination. Physical Examination: -Constitutional: Cooperative. Not in acute distress . - Neurologic: Cranial nerve II to XII intact. No focal neurological deficits. - Psychatric: Alert & oriented x 3. Matching mood & appropriate affect. Judgment and insight intact. - Musculoskeletal: Cervical spine: Muscle bulk/ tone/ strength in the bilateral upper extremities normal Vertebral body tenderness to palpation over C7 Spurling test positive C7-T1 Distraction test positive Facet loading test positive TTP Thoracic spine Muscle bulk / tone/ strength in the bilateral paraspinal muscles normal Vertebral body tender to palpation over Facet loading test positive TTP Lumbar spine: Motor bulk/ tone/ strength lower extremities , thigh and legs : 5/5 Deep tendon reflexes : Normal Knee Jerk. Normal Ankle Jerk . Vertebral body tenderness to palpation over Lumbar Facet Loading Test positive Straight Leg Raise: positive at 30 degrees right side/ left side Gaenslen's Test positive Sacral spine : Severe tenderness over the Sacroiliac joint: right side / left side Range of motion: Flexion of the lumbar spine <60 degrees Range of motion: Extension of the lumbar spine <20 degrees Gaenslen's Test positive R / L Kishor test: positive right side / left side Thigh Thrust Test positive R / L Sacral Thrust Test positive R/ L Imaging: MRI non contrast cervicothoracic spine from 08/04/24 reviewed Assessment and plan: Chronic neck pain secondary to cervical radiculopathy, spondylosis with facet arthropathy without myelopathy Recommendation of follow up w Dr Tse to explore surgical treatment options. All questions answered. I have spent less than 30 minutes on patient care today. Dr Garcia was available by phone for the evaluation of this patient. The time was used to review the medical records including relevant urine studies and Prescription history (MAPs), review of the available imaging, evaluation and examination of the patient, coordination of care with the medical staff and if applicable referring physicians, as well as creation of the medical record PQRS Narrative: Smoking Status Never smoker Hx Alcohol Use (MH) No Home Medications: Ambulatory Orders Ibuprofen 800 mg PO TID PRN 05/22/18 Budesonide/Glycopyr/Formoterol [Breztri Aerosphere Inhaler] 2 puff INHALATION RT-BID 08/03/24 Zolpidem [Ambien] 10 mg PO HS PRN 08/03/24 tadalafiL 20 mg PO Q72H PRN 08/03/24 Acetaminophen Tab [Tylenol] 650 mg PO Q6HR PRN tab 08/06/24 diazePAM [Valium] 5 mg PO DAILY PRN 1 Days #2 tab 08/30/24 oxyCODONE-APAP 10-325MG [Percocet 10-325 mg] 1 tab PO Q8HR PRN 09/13/24 Controlled Substance Measures - Controlled Substance Measures Is patient prescribed a controlled substance at discharge?: No
== END ==
LOC: PNWHC3 10:10
PROVIDERS: ATTEND Specialist
DX: M47.22 Other spondylosis with radiculopathy, cervical region (principal)
CPT/HCPCS: 99211

== ENCOUNTER → 2024-10-22 | Outpatient (CLI) | payer BC | END | disposition home or self-care (01) | LOC: LABPAT 11:00 | PROVIDERS: ATTEND Orthopaedic Surgery | DX: Z01.812 Encounter for preprocedural laboratory examination (principal); M50.00 Cervical disc disorder with myelopathy, unspecified cervical region; Z22.322 Carrier or suspected carrier of Methicillin resistant Staphylococcus aureus | CPT/HCPCS: 87070 ==

== ENCOUNTER → 2024-10-25 | Outpatient (CLI) | payer BC | END | disposition home or self-care (01) | LOC: LABPAT 13:03 | PROVIDERS: ATTEND Orthopaedic Surgery | DX: M50.00 Cervical disc disorder with myelopathy, unspecified cervical region (principal); Z22.322 Carrier or suspected carrier of Methicillin resistant Staphylococcus aureus | CPT/HCPCS: 86850; 86900; 86901 ==

== ENCOUNTER 2024-10-28 05:41 | Day surgery (SDC) | payer BC ==
--- NOTE | 2024-10-27 15:10 | P.HPOR ---
"History of Present Illness H&P Date: 10/22/24 .D:Date: 10/22/24 : 02:10pm .T:Title: *PRE-OP H1 [facility] [address] [place] [id number]| PROVIDER: SANDRA MCCABE DO CLINICAL SUMMARY: *Mr. Swann is a 54-year-old male presenting with severe neck pain (9/10 on VAS scale), right upper extremity pain, and progressive right upper extremity weakness. He has been diagnosed with a C7-T1 herniated nucleus pulposus (HNP) causing moderate central and severe foraminal stenosis on the right side, resulting in C8 radiculopathy. Conservative treatments including medications (prescription and [id number]), physical therapy, home exercises, and one epidural steroid injection have provided only minimal, temporary relief. 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 Physical examination reveals 4+/5 strength in several right upper extremity muscle groups, positive Spurling's sign on the right, and C8 dermatomal deficits. Imaging confirms spondylosis with stenosis at C7-T1, and Dr. Mccabe has recommended a right C7-T1 mini-open laminoforaminotomy and decompression as surgical intervention. DEMOGRAPHICS: Age: 54 year Height: 6' Weight: 243 lbs BP:/ BMI: 32.96 kg/m2 Occupation: * CC: *Neck pain, Arm pain, RUE weakness VAS: *9/10 HISTORY: Mr. Swann presents to the office today, 10/22/24, for *preoperative visit for his C7-T1 HNP with RUE radiculopathy. He continues to have significant pain regards to his arm, neck and his HNP. He has tried conservative treatments in the form of Rx and OTC medications, therapy, home therapy and injections x1 KANU in the hospital. None of these have provided lasting complete relief for him. He did get minimal relief of his back pain from the inejctions but that has been temporary and now he has it again. He states his RUE feels weaker and is progressively getting worse. He states he is unable to hold onto objects as well any more and he continues to have issues with his day to day activities related to this issue. He states no other injury or problems as this time and states he is ready for surgery. * Patient denies any f/c/sob/cp, perineal numbness or tingling, bowel, or bladder incontinence/retention. * The patients past social, medical, family, surgical history, as well as review of systems, have been reviewed. Please refer to the History and Physical form that has been scanned into our electronic medical record system. * 16 points review of systems completed and as stated in HPI, all other systems reviewed are negative. PAST TREATMENTS: PAST IMAGING: -*YES -* TRAUMA RELATED: -*NO -* WORK RELATED: -*NO -* PT IN LAST 6 MONTHS: -*YES -* PHYSICIAN DIRECTED HOME EXERCISE PROGRAM: -*YES -* ACTIVITY MODIFICAITON: -*YES -*limited blt 10 lbs, no improvement MEDICATIONS: -*YES -*Rx and OTC without relief ALTERNATIVE INTERVENTIONS (CHIROPRACTIC, ACCUPUNCTURE, MASSAGE, RICE): -*YES -* BRACING: -*NO -* INJECTIONS (KANU, TF, RFA): -*YES -*KANU C7-T1 MEDICAL HISTORY: Past Medical History: REVIEWED STATED IN CHART * Past Surgical History: REVIEWED STATED IN CHART * Social History: REVIEWED STATED IN CHART SMOKING: * Never smoker ETOH: * None SUBSTANCES: *None Family History: REVIEWED STATED IN CHART Current Medications: DEL none INSERT CURRENT MEDICATIONS P1 PHYSICAL EXAM: General: AOX3, NAD, Well hydrate, well nourished HEENT: No lumps or masses Extremities: No color changes, no pooling * INTEGUMENT: Appearance: * Normal color and turgor Surgical Incisions: *NA Hairy Patches: ABSENT Dorsal Skin Dimples: Normal [employer] spots: ABSENT PALPATION: TTP Midline: *YES Paracervical: *YES Parathoracic: *YES RIGHT T1-2 Paralumbar: *NO SIJ TESTING (Dari's, FABER4, Compression, Distraction, Thigh Thrust, Hip Thrust): * TESTED/NOT TESTED * POSITIVE FINDINGS: *NA` NEGATIVE FINDINGS: *ALL POSTURAL BALANCE: Coronal: *BALANCED Sagittal: *BALANCED Shoulder height: LEVEL Pelvic Girdle: LEVEL ROM AND APPEARANCE: Neck: *RESTRICTED *Secondary to pain Lumbar: *UNRESTRICTED * Shoulders: Symmetrical Hips: Symmetrical Knees: Symmetrical Hands: Symmetrical Feet: Symmetrical VASCULAR STATUS: PALPABLE PULSES B/L UE AND LE 2/4 RAD/ULNAR/DP/PT Edema: NONE NEUROLOGICAL EXAMINATION: Mental Status: Awake, alert, fully oriented with normal attention, concentration, and memory. Fluent appropriate speech. CRANIAL NERVES: I: Olfactory not assessed. II: Visual acuity normal, no visual field deficit noted with confrontation. III, IV: Normal pupillary reflexes & intact extraocular movements without nystagmus. V, : Intact symmetrical facial sensation. VII: Intact symmetrical facial motor movement: Hearing intact. IX, X: Intact gag, swallow, & normal voice. XI: Sternocleidomastoid, trapezius function intact. XII: Tongue midline with normal movements. TENSIONING: * L'HERMITTE'S SIG:*NEG SPURLUNG'S SIGN:*POS RIGHT>LEFT UPPER EXTREMITY TENSIONING SIGNS: *NEG CUBITAL TUNNEL COMPRESSION:*NEG TINELS AT WRIST:*NEG STRAIGH LEG RAISE:*NEG CONTRALATERAL STRAIGHT LEG RAISE: *NEG MOTOR EXAM (0-5/5, NT) Muscle appearance: *Symmetrical, without signs of atrophy or dystrophy UPPER EXTREMITY RIGHT LEFT Shoulder Abduction *4+ *5 Biceps *4+ *5 Triceps *4+ *5 Wrist Extension *4+ *5 Hand Intrinsics *5 *5 Steel Box Toe Inserter *4+ *5 LOWER EXTREMITY RIGHT LEFT Hip Flexion *5 *5 Knee Extension *5 *5 Knee Flexion *5 *5 Dorsiflexion *5 *5 Plantarflexion *5 *5 EHL *5 *5 FHL *5 *5 REFLEXES (0-4/2, NT): RIGHT LEFT Bicep 2 2 Brachioradialis 3 2 Triceps 2 2 Patellar 2 2 Achilles 2 2 PATHOLOGICAL REFLEXES: RIGHT LEFT STREET'S PRESENT *ABSENT CLONUS *ABSENT *ABSENT BABINSKI *ABSENT *ABSENT RECTAL TONE: *INTACT/NT SENSATION (0-4, NT): Sensation intact to LT and Pain * C5-T1 distribution BUE * L2-S2 distribution BLE *Exceptions below* DERMATOMAL DEFICIT/RADICULAR PATTERN: *C8 RUE GAIT AND FUNCTIONAL EVALUATION: AMBULATORY AID *NONE ROMBERG'S TEST *INTACT HAND AND FINGER DEXTERITY INTACT *YES DYSDIADOCHOKINESIA EXAM NEG B/L *YES TOE/HEEL WALK INTACT WITH GOOD BALANCE *YES SQUAT AND RISE W/O ASSISTANCE TO 60 DEG KNEE FLEXION *YES SINGLE LEG STANCE *INTACT TRENDELENBURG *NEG IMAGING: XR, CT and MRI all reviewed again with pt. This demonstrates spondylosis with stenosis and foraminal stenosis at C7-T1 on the right causing moderate central and severe foraminal stenosis that is lending to his C8 displacement and radiculopathy. There are no fractures noted at this time. There is mild spondylotic changes of the remainder of the neck with varying degrees of stenosis from HNP and degen changes none of which correlate with his sx at this time. IMPRESSION: It was my pleasure to have seen and examined Dillon. I reviewed the patient's clinical syndrome, physical findings, and imaging studies during the appointment today. It is my impression that the patient has a diagnosis of. 1.*C7-T1 HNP with stenosis 2.*RUE radiculopathy 3.*RUE weakness 4. Neck pain PLAN: DISCUSSION: -*I have discussed with the patient their clinical signs and symtpoms, imaging, and treatment options. We have discussed risks, benefits, potential outcomes and natural course as pertains top their issues. The patient understands and would like to proceed as follows below: SURGICAL RECOMMENDATION -*C7-T1 LAMINOFORAMINOTOMY AND DECOMPRESSION RIGHT MINI OPEN Surgical Procedure Risk Review Dillon Swann is a 54 year old male presenting for evaluation of sudden onset of *RUE pain, weakness, neck pain and chest pain. It was my pleasure to have seen and examined Mr. Swann. In our visit today we have had a chance to go over subjective complaints, physical examination findings and treatments, including the natural course history without intervention and various interventional options. The imaging demonstrates * XR, CT and MRI all reviewed again with pt. This demonstrates spondylosis with stenosis and foraminal stenosis at C7-T1 on the right causing moderate central and severe foraminal stenosis that is lending to his C8 displacement and radiculopathy. There are no fractures noted at this time. There is mild spondylotic changes of the remainder of the neck with varying degrees of stenosis from HNP and degen changes none of which correlate with his sx at this time. . On physical exam, Mr. Swann demonstrates * RUE PAIN NUMBNESS/TINGLING, WEAKNESS, WITH HYPERREFLEXIA, PROGRESSIVE NEUROLOGICAL SX AND NECK PAIN RADIATING TO HIS RUE AND HAND. . I explained to the patient that as his condition progresses it could cause * Continued sx, progressive changes and weakness . At this time, based on the patients imaging and physical exam, I recommend surgery in the form or a: *C7- [id number] WITH DECOMPRESSION . I discussed the risk and benefits of this procedure at length with Mr. Swann. The patient spouseagreed to consider pursuing the procedure mentioned above. Plan: 1. *C7-T1 LAMINOFORAMINOTOMY 2. * Follow up with PCP for surgical clearance 3. * Review of surgical risks and benefits as well as an educational packet on the proposed surgical procedure. 4. DEL Risks: All surgical procedures come with inherent risks, including those related to positioning, anesthesia, intraoperative findings, and postoperative complications. It is important to understand that surgery does not come with any guarantee of a successful outcome as complications and adverse events are always possible. The patient was given a handout in office today discussing the surgical procedure and risks associated with the intervention, both of which were discussed with the patient. These risks include but are not limited to the following: ? Experiencing same, different or even worse symptoms in back, neck, arms, or legs compared to before surgery. ? Requiring further surgery or other forms of treatment presently or at some time in the future at same or other levels of the intended spine surgery. ? On an extreme but fortunately relatively rare basis severe complication such as blindness, stroke, heart attack, temporary and/or permanent nerve injury, paralysis, coma, or may occur, sometimes without known explanation. ? Surgical complications may include but are not limited to risk of infection, fluid accumulation in the surgical dissection site, including a seroma or hematoma, that requires additional surgery, wound drainage, bleeding, new numbness or weakness, vision changes/loss, spinal fluid leakage, non-healing and/or infected incision, headaches, difficulty or inability to swallow, hoarseness, hemopneumothorax, pneumothorax, impotence, retrograde ejaculation, vaginal dryness; injury to nerves, spinal cord, blood vessels, lymphatics or other vital organs (i.e., bowel injury, injury to the great vessels); heterotopic bone formation; complications related to the hardware such as screws, rods, cages including misplaced hardware, device failure, instrumentation at the wrong spine level, hardware fracture/breakage, or hardware loosening; vertebral failure of the spinal column above or below the newly placed hardware; retained surgical instrumentations or devices and the need for further surgery. ? Medical risks of the planned spine surgery include but are not limited to generalized Infections to the whole body or local areas outside of the surgical site (sepsis), heart attack, bleeding, anaphylaxis, meningitis, seizure, epilepsy, hearing loss, burn ribera, laceration of the head or other areas of the body, bruising, hypersensitivity of the skin, bladder over distension; allergic reaction; shoulder injury related to positioning; fat, blood and air clots to other areas of the body like heart, lungs, brain; failure of internal organs such as lungs, kidneys, liver and excessive bleeding. If blood transfusions are necessary, note that transfusions may cause intolerance reactions such as anaphylaxis or other complex reactions. Despite best efforts, the results of spine surgery might not heal in terms of bone, soft tissues such as skin, fascia, ligaments, and joints. Additionally, in order to achieve best possible results, spine surgery may be carried out beyond the initially planned levels and involve decompression, fusion including insertion of hardware at levels other than the original intended area of surgical interest change some portions of the procedure in order to ensure the best possible outcomes. With spine surgery and spinal fusion, there are different off label uses of instrumentation (devices, implants and hardware) as well as biological substances (bone morphogenic proteins, demineralized bone matrix) as well as using extra bone from allograft sources (i.e. cadaver bone) or autograft (iliac crest bone, ribs, or the spine itself). The patient has been given information about these practices and their inherent risks and benefits. [facility] Physician Assistants are medically trained surgical providers who function in the outpatient, inpatient, and operating room setting under the direct supervision of the attending surgeon.They assist in the operating room with direct supervision of the attending surgeons. The patient has had a chance to review all the listed information, has been given print outs detailing this information, and has had all his/her questions answered to their satisfaction. It was my pleasure to have seen and examined Mr. Swann. In our visit today we have had a chance to go over my understanding of our patient's current condition, the natural course history without intervention and various interventional options. Questions were invited and answered, and the patient wishes to proceed as outlined above. I have seen and examined the patient for 25 minutes and we have spent more than 50% of the time in repeat and detailed counseling about the patient's condition, its natural course history with out and as much as can be predicted with surgery and re-review of various surgical treatment options. In conclusion,Mr. Swann and his spouse/partner requested we proceed with the above suggested surgery and are willing to accept risks and limitations of the suggested surgery as nature of the disease process and our best attempts at treatment for the condition. MEDICAL NECESSITY: Mr. Swann demonstrates clear medical necessity for surgical intervention due to the presence of progressive neurological deficits in his right upper extremity, including documented weakness (4+/5 strength in shoulder abduction, biceps, triceps, and wrist extension) and C8 dermatomal sensory changes. His condition has failed to improve despite an appropriate course of conservative management i ncluding prescription medications, physical therapy, home exercise program, activity modifications with bilateral 10-pound lifting restrictions, and epidural steroid injection at C7-T1. 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 The severity of his pain (9/10 on VAS scale) combined with objective findings of nerve root compression on imaging and corresponding physical exam findings (positive Spurling's sign) further support the medical necessity for surgical intervention. SURGICAL RATIONALE: The surgical approach of a right C7-T1 mini-open laminoforaminotomy and decompression is specifically chosen based on both imaging findings and clinical presentation. Imaging demonstrates moderate central and severe foraminal stenosis at C7-T1 on the right side, directly corresponding to the patient's C8 radiculopathy pattern. The focal nature of the pathology at a single level, combined with the predominantly unilateral symptoms and the presence of neurological deficit, makes this targeted decompressive procedure the most appropriate surgical option. This minimally invasive approach will allow for adequate neural decompression while preserving spinal stability, as there is no evidence of significant instability requiring fusion. The goal of surgery is to decompress the C8 nerve root to prevent further neurological deterioration and potentially reverse the existing deficits, while also addressing the patient's severe pain symptoms. FOLLOW UP: * WEEKS PLAN AT NEXT VISIT: * RECKECK PATIENT EDUCATION: Medications Reviewed: YES In our visit today Mr. Swann and I have had a chance to go over my understanding of the patient's current condition, the natural course history without intervention and various interventional options. Questions were invited and answered, and the patient wishes to proceed as outlined above. I will be sure to keep you updated after Mr. Swann returns here for further follow-up. Thank you again for your referral. Please do not hesitate to contact me if you have any further questions. Signed and authenticated by: Sandra Tate [facility] [address] [place] [place] [address] . This message is confidential, intended only for the named recipient(s) and may contain information that is privileged or exempt from disclosure under applicable law. If you are not the intended recipient(s), you are notified that the dissemination, distribution or copying of this information is prohibited. If you received this message in error, please notify the sender then delete this message. Past Medical History Past Medical History: Osteoarthritis (OA) Additional Past Medical History / Comment(s): back pain, CERVICAL PAIN History of Any Multi-Drug Resistant Organisms: None Reported Past Surgical History: Hernia Repair, Joint Replacement Additional Past Surgical History / Comment(s): WISDOM TEETH. rt hip replace, PAIN CLINIC PROCEDURES, COLONOSCOPIES Past Anesthesia/Blood Transfusion Reactions: No Reported Reaction Additional Past Anesthesia/Blood Transfusion Reaction / Comment(s): no blood transfuiosn hx Smoking Status: Never smoker - Past Family History Father Family Medical History: Cancer Mother Family Medical History: Cancer Medications and Allergies Home Medications Medication Instructions Recorded Confirmed Type Ibuprofen 800 mg PO TID PRN 05/22/18 10/21/24 History tadalafiL 20 mg PO Q72H PRN 08/03/24 10/21/24 History oxyCODONE-APAP 10-325MG [Percocet 1 tab PO Q6H PRN 09/13/24 10/21/24 History 10-325 mg] Gabapentin 300 mg PO TID 10/21/24 10/21/24 History Allergies Allergy/AdvReac Type Severity Reaction Status Date / Time No Known Allergies Allergy Verified 10/21/24 15:55 Physical Examination Osteopathic Statement: *. No significant issues noted on an osteopathic structural exam other than those noted in the History and Physical/Consult."
[~2024-10-28 05:41] MED LIST changes: +GABAPENTIN 300 MG CAP PO PRN; -LACTATED RINGERS 1,000 ML IV SCH; +TRANEXAMIC 1,000 MG/100ML-NACL 1,000 MG in SALINE 1 100ML.BAG IVPB PRN
[2024-10-28] MEDS ORDERED: ONDANSETRON 4 MG/2 ML VIAL IVP ONE (05:55)
[2024-10-28] MEDS: LACTATED RINGERS 1,000 ML IV SCH (06:54)
[2024-10-28] MEDS: ONDANSETRON 4 MG/2 ML VIAL IVP PRN (06:54)
[2024-10-28] MEDS: DEXAMETHASONE SOD PHOSPHATE 4 MG/ML 1 ML VIAL IV ONE (06:54)
[2024-10-28] MEDS: ACETAMINOPHEN TAB 500 MG TAB PO PRN (06:55)
[2024-10-28] MEDS: IV FLUID CONTINUATION 1,000 ML IV ONE (07:00)
[2024-10-28] MEDS: LACTATED RINGERS 1,000 ML IV ONE (07:00)
[2024-10-28] MEDS ORDERED: NEOSTIGMINE 1 MG/ML 10 ML VIAL ONE (07:24)
[2024-10-28] MEDS ORDERED: fentaNYL (PF) 50 MCG/ML 2 ML AMP ONE (07:24)
[2024-10-28] MEDS ORDERED: HYDROmorphone (PF) 1 MG/ML ONE (07:24)
[2024-10-28] MEDS ORDERED: ROCURONIUM 10 MG/ML (5 ML VIAL) IV ONE (07:24)
[2024-10-28] MEDS ORDERED: TRANEXAMIC 1,000 MG/100ML-NACL PREMIX BAG ONE (07:24)
[2024-10-28] MEDS ORDERED: PROPOFOL 10 MG/ML 20 ML VIAL IV ONE (07:24)
[2024-10-28] MEDS ORDERED: MIDAZOLAM 2 MG/2 ML VIAL ONE (07:24)
[2024-10-28] MEDS ORDERED: PHENYLEPHRINE-0.9% NACL SYG 1,000 MCG/10 ML SYRINGE ONE (07:24)
[2024-10-28] MEDS ORDERED: SUCCINYLCHOLINE CHLORIDE 200 MG/10 ML VIAL IV ONE (07:24)
[2024-10-28] MEDS ORDERED: LIDOCAINE 1% INJ 10MG/ML (20 ML MDV) ONE (07:24)
[2024-10-28] MEDS ORDERED: GLYCOPYRROLATE 0.2 MG/ML 2 ML VIAL ONE (07:24)
[2024-10-28] MEDS: ceFAZolin 3 GM in SODIUM CHLORIDE 0.9% 100 ML IVPB PRN (07:29)
[2024-10-28] MEDS: BUPIVACAINE (PF) 0.5% 30 ML VIAL SQ ONE (07:58)
[2024-10-28] MEDS: LIDOCAINE 2%-EPI 1:100,000 20 ML VIAL SQ ONE ×2 (07:58→08:12)
[2024-10-28] MEDS: ceFAZolin 3,000 MG in SODIUM CHLORIDE 0.9% IRRIGATIO 3,000 ML IRRIGATION ONE (08:12)
[2024-10-28] MEDS: BUPIVACAINE (PF) 0.25% 30 ML VIAL SQ ONE (08:12)
[2024-10-28] MEDS: THROMBIN (BOVINE) 5,000 UNIT VIAL TOPICAL ONE (08:12)
[2024-10-28] MEDS: VANCOMYCIN 1,000 MG VIAL MISCELLANE ONE ×2 (08:57)
[2024-10-28 09:56] VITALS: TEMP 97.3
[2024-10-28] MEDS: HYDROmorphone 0.5 MG/0.5 ML SYRINGE IVP PRN (09:58)
--- NOTE | 2024-10-28 10:01 | XR ---
EXAMINATION TYPE: XR cervical spine limited, FL guidance operating room DATE OF EXAM: 10/28/2024 9:46 AM CLINICAL INDICATION: Male, 54 years old with history of CERVICAL FUSION, , FINDINGS: POSTERIOR C7-T1 RIGHT LAMINOFORAMINOTOMY, 14 SEC FLUORO, DAP 1.9833 Gycm2 6 images are submitted. [facility], , 10/28/2024 9:59 AM
--- NOTE | 2024-10-28 10:01 | P.OP ---
Date of Procedure: 10/28/24 Preoperative Diagnosis: 1. C7-T1 HNP WITH STENOSIS AND RADICULOPATHY 2. RUE WEAKNESS 3. RUE PARESTHESIAS 4. NECK PAIN Postoperative Diagnosis: 1. C7-T1 HNP WITH STENOSIS AND RADICULOPATHY 2. RUE WEAKNESS 3. RUE PARESTHESIAS 4. NECK PAIN Procedure(s) Performed: 1. C7-T1 LAMINOFORAMINOTOMY WITH DECOMPRESSION C8 ROOT USE OF IO MICROSCOPE MOD22: HIGH BMI >35; HIGH TECHNICALITY OF CASE, SEVERE PATHOLOGY/DISEASE. Implants: NONE Anesthesia: GETA Surgeon: Reid Tse Bottom Turning Lathe Tender #1: José Lopez (WAS PRESENT AND ASSISTED WITH ALL ASPECTS OF THE CASE FROM POSITION TO DRESSING PLACEMENT) Estimated Blood Loss (ml): 75 IV fluids (ml): 1,000 Urine output (ml): 0 Pathology: none sent Condition: stable Disposition: PACU Indications for Procedure: Dillon Swann is a 54 year old male presenting for evaluation of sudden onset of *RUE pain, weakness, neck pain and chest pain. It was my pleasure to have seen and examined Mr. Swann. In our visit today we have had a chance to go over subjective complaints, physical examination findings and treatments, including the natural course history without intervention and various interventional options. The imaging demonstrates * XR, CT and MRI all reviewed again with pt. This demonstrates spondylosis with stenosis and foraminal stenosis at C7-T1 on the right causing moderate central and severe foraminal stenosis that is lending to his C8 displacement and radiculopathy. There are no fractures noted at this time. There is mild spondylotic changes of the remainder of the neck with varying degrees of stenosis from HNP and degen changes none of which correlate with his sx at this time. . On physical exam, Mr. Swann demonstrates * RUE PAIN NUMBNESS/TINGLING, WEAKNESS, WITH HYPERREFLEXIA, PROGRESSIVE NEUROLOGICAL SX AND NECK PAIN RADIATING TO HIS RUE AND HAND. . I explained to the patient that as his condition progresses it could cause * Continued sx, progressive changes and weakness . At this time, based on the patients imaging and physical exam, I recommend surgery in the form or a: *C7- [id number] WITH DECOMPRESSION . I discussed the risk and benefits of this procedure at length with Mr. Swann. The patient spouseagreed to con test eng pursuing the procedure mentioned above. Plan: 1. *C7-T1 LAMINOFORAMINOTOMY Description of Procedure: C7-T1 RIGHT LAMINOFORAMINOTOMY The patient was seen and examined in the preoperative area. All preoperative protocols were followed. Informed consent was obtained, risks and benefits of the procedure were discussed at length. Risks including bleeding infection damage to the surrounding tissue and risk of reoperation were discussed with the patient. Risk of anesthesia up to and including was discussed with the patient. These are outlined in the risk review. They were willing to accept these risks and all of the risks of surgery. The patient was given a weight- based dose of antibiotics in the form of 2 g Ancef. The patient was seen and evaluated by the anesthesia team who deemed them fit for surgery. The site was marked, the patient was willing to proceed with the procedure. The patient was transferred to the operative suite by the Department of anesthesia. They were then drifted off to sleep by the department anesthesia and GETA was performed. The patient tolerated this well. pre-positioning motors were obtained.Braswell in place from the floor. Once confirmation of lines and ventilation Jaquez head clamp was placed on the patient and secured and the patient was transferred to a [prone Eladio table very carefully] with the Jaquez knitting machine fixer head the head was secured and placed into an optimal position x- ray confirmed this position. Post-positioning motors remained stable. All bony prominences including wrists, elbows, axilla, chest, hips, and thighs, and feet were padded very well. Special attention was paid to the genitalia and these were padded accordingly. SCDs were placed on bilateral lower extremities and were connected. Arms were well padded and placed tucked at his side thumbs down. Shoulders were gently taped down to the table.. Once in position, again we confirmed good ventilation capabilities and that lines were running appropriately. The patient's posterior cervical spine was then exposed. 1010s were placed outlining the incision site. Standard alcohol was used to clean the incision site and allowed to dry. C-arm was used to biomark the patient and confirm level for incision which was marked with a skin marker. Operative briefing was performed with all teams and everyone in agreement to proceed. The patient was then prepped and draped in a normal sterile fashion. Timeout was then performed and all parties were in agreement with the procedure to be performed. Midline skin incision made over the previously bio-marked area and dissection taken down midline to the SP of C6-T1. Midline was split off center for midline sparing approach and on the right side Subperiosteal dissection taken out over the lamina and lateral masses of C6-T1 and TVP of T1.. Once exposure complete, the wound was irrigated and the C-arm brought in for imaging. A penfield 4 was used to ruth the pedicle of T1 and confirm levels for operation. Microscope was then brought in for visualization. High speed jose armando was then used to perform laminotomy of C7-T1 on the right allowing for complete decompression. ULOD was done to ensure midline decompression and contralateral decompression as well. Medial facetectomy was done to allow for access to the foramen. C8 root was identified and followed along its course for foraminotomy with 2 and 3 kerrisons. Ensuring joint congruency and stability, foraminotomy was done to completely decompress the C8 root. Meticulous hemostasis was done with bipolar, floseal and thrombin. Once this was completed imaging was taken with a Woodsen in the foramen to confirm decompression and level. The wound was then irrigated copiously with 3L Ancef and gentamycin irrigation, Irricept and 3L NSS. The wound bed was inspected. There were no injuries, good hemostasis achieved and good decompression. 2 g of powdered vancomycin was then placed deep within the wound. We then proceeded with layered closure first in the deep fascia with #1 PDS then in the deep fascia. 0 Vicryl was used in the deep subq 2-0 in the superficial subq and then Skin ángel. This approximated skin edges. The wound edges approximated very well. The wound was then cleaned and dressed sterilely with an operative foam dressing 4 x 4 and Tegaderm. The drain had good suction. The patient was placed in a soft cervical collar. The patient was transferred back to their hospital bed atraumatically. Jaquez head clamp was removed and pin sites were clear.. The patient was then awakened and extubated by the department of anesthesia having tolerated the procedure very well with no complications. They were transferred to the postoperative care unit in stable condition.
[2024-10-28] MEDS: HYDROcodone/APAP 10-325MG 1 EACH TAB PO ONE (11:00)
[2024-10-28] MEDS: KETOROLAC 15 MG/ML 1 ML VIAL IVP STA (12:49)
[2024-10-28 13:30] VITALS: BP 134/83; PULSE 76; RESP 18
== END 2024-10-28 14:04 | disposition home or self-care (01) ==
LOC: OR 05:41
PROVIDERS: ATTEND Orthopaedic Surgery
DX: M50.13 Cervical disc disorder with radiculopathy, cervicothoracic region (principal); M48.03 Spinal stenosis, cervicothoracic region; M19.90 Unspecified osteoarthritis, unspecified site; I10 Essential (primary) hypertension; E66.01 Morbid (severe) obesity due to excess calories; Z68.37 Body mass index [BMI] 37.0-37.9, adult; Z79.899 Other long term (current) drug therapy; Z98.890 Other specified postprocedural states; Z96.641 Presence of right artificial hip joint
CPT/HCPCS: 72040; 63045; J3370; J1100; J0690 ×2; J2405; J1885; J1171; J0665 ×2